=== PATIENT | male | born 1955 | race Caucasian/White ===

== ENCOUNTER 2017-11-02 15:33 | Emergency (ER) | payer OTHER ==
[2017-11-02 15:45] VITALS: BP 154/79
--- NOTE | 2017-11-02 16:04 | UC ---
Dizzy HPI HPI Summary: PT WAS TRYING TO CLEAN A DRAIN IN HIS GARAGE ABOUT 10:30AM TODAY WHEN HE REALIZED HE WAS BREATHING IN FUMES FROM THE SEPTIC SYSTEM - HYDROGEN SULFIDE. PT REPORTS EXPOSURE FOR ABOUT 2 MINUTES. SINCE THEN HE HAS HAD PERSISTENT NAUSEA AND VOMITED X 1 AND LOOSE STOOLS X 2. HAS SOME LIGHTHEADEDNESS AND FEELS FOGGY. NO CP, SOB. - History Of Current Complaint Chief Complaint: UCChemicalExposure Stated Complaint: NAUSEA, AND VOMITING Time Seen by Provider: 11/02/17 15:44 Hx Obtained From: Patient Onset/Duration: Sudden Onset, Lasting Hours, Still Present Timing: Constant Severity Initially: Moderate Severity Currently: Mild Pain Intensity: 2 Pain Scale Used: 0-10 Numeric Character: Lightheaded Aggravating Factor(s): Headache Alleviating Factor(s): Nothing Associated Signs And Symptoms: Positive: Nausea, Vomiting. Negative: Chest Pain , SOB, Palpitations - Allergies/Home Medications Allergies/Adverse Reactions: Allergies Allergy/AdvReac Type Severity Reaction Status Date / Time Fenofibrate Allergy Mild Hives Verified 11/02/17 15:45 environmental Allergy Mild Congestion Uncoded 11/02/17 15:45 Home Medications: Home Medications Allergy Relief Eye Drops* 11/02/17 [History] Cetirizine* [ZyrTEC 10 MG TAB*] 10 mg PO DAILY 11/02/17 [History Confirmed 11/02] Multiple Vitamins W/ Minerals [Vitamins & Minerals] 11/02/17 [History Confirmed 11/02/17] PMH/Surg Hx/FS Hx/Imm Hx Respiratory History: Asthma Other GI/ History: IBS - Surgical History Surgical History: None - Family History Known Family History: Positive: Hypertension - Social History Alcohol Use: Occasionally Substance Use Type: None Smoking Status (MU): Never Smoked Tobacco Have You Smoked in the Last Year: No Review of Systems Constitutional: Negative ENT: Negative Respiratory: Negative Cardiovascular: Negative Gastrointestinal: Vomiting, Diarrhea, Nausea Neurological: Headache, Other - LIGHTHEADED All Other Systems Reviewed And Are Negative: Yes Physical Exam Triage Information Reviewed: Yes Appearance: Well-Appearing, No Pain Distress, Well-Nourished Vital Signs: Initial Vital Signs Temp 97.7 F 11/02/17 15:36 Pulse 96 11/02/17 15:36 Resp 16 11/02/17 15:36 BP 154/79 11/02/17 15:36 Pulse Ox 100 11/02/17 15:36 Vital Signs Reviewed: Yes Eyes: Positive: Conjunctiva Clear ENT: Positive: Hearing grossly normal, Pharynx normal Neck: Positive: Supple, Nontender Respiratory Exam: Normal Cardiovascular Exam: Normal Abdomen Description: Positive: Soft Musculoskeletal: Positive: No Edema Neurological: Positive: Alert Psychological: Positive: Age Appropriate Behavior Skin: Negative: rashes Diagnostics - EKG Cardiac Rate: NL Cardiac Rhythm: Sinus: Normal Ectopy: None ST Segment: Normal Dizzy Course/Dx - Course Course Of Treatment: POISON CONTROL CONTACTED. DUE TO HIGHLY TOXIC NATURE OF GAS AND POTENTIAL FOR CARDIAC SEQUELAE - RECOMMENDED TRANSFER TO ED. PT DECLINED. SIGNED OUT AMA. ADVISED OF POTENTIAL RISKS OF NOT PURSUING FOLLOW-UP - INCLUDING . - Differential Dx/Diagnosis Provider Diagnoses: HAZARDOUS CHEMICAL FUME EXPOSURE Discharge - Discharge Plan Condition: Stable Disposition: AGAINST MEDICAL ADVICE Prescriptions: Ondansetron ODT TAB* [Zofran Odt TAB*] 4 mg PO Q6H PRN #20 tab.odt PRN Reason: Nausea/Vomiting Patient Education Materials: Smoke Inhalation (ED) Referrals: Sarmad Ndiaye MD [Primary Care Provider] - If Needed Additional Instructions: YOU HAVE DECLINED ER TRANSFER AND ARE CHOOSING TO SIGN OUT AGAINST MEDICAL ADVICE. GO TO THE ER WITHOUT FAIL IF YOUR SYMPTOMS PERSIST OR WORSEN.
== END 2017-11-02 16:17 | disposition left against medical advice (07) ==
LOC: UCEAST 15:33
DX: T59.6X1A Toxic effect of hydrogen sulfide, accidental (unintentional), initial encounter (principal); R94.31 Abnormal electrocardiogram [ECG] [EKG]; Z88.8 Allergy status to other drugs, medicaments and biological substances; J45.909 Unspecified asthma, uncomplicated
CPT/HCPCS: 93005; 99213; G0463

== ENCOUNTER 2018-02-19 13:11 | Observation (INO) | payer BC ==
--- NOTE | 2018-02-19 14:08 | RAD ---
Indication: Syncope, chest pain. 2 views of the chest including dual energy PA views demonstrate no mediastinal shift. Heart is of normal size and configuration. Lung stover are clear. No pleural fluid, pneumonia or pneumothorax is noted. IMPRESSION: No active cardiopulmonary disease is noted.
[2018-02-19] MEDS ORDERED: Metoprolol Tartrate IV* 1 MG/ML 5 ML VIAL IV ONE (14:12)
[2018-02-19] MEDS ORDERED: NS 0.9% 1000 ML* 1,000 ML IV ONE (14:12)
[2018-02-19 14:30] LABS: ABS Basophils 0 10^3/ul (0-0.2); ABS Eosinophils 0.2 10^3/ul (0-0.6); ABS Lymphocytes 1.8 10^3/ul (1.0-4.8); ABS Monocytes 0.6 10^3/ul (0-0.8); ABS Neutrophils 5.4 10^3/ul (1.5-7.7); ABS Nucleated RBC 0 10^3/ul; Eosinophil % 2.2 % (0-6); Hematocrit 43 % (42-52); Hemoglobin 14.8 g/dl (14.0-18.0); Lymphocyte % 22.8 % (25-47); Mean Corpuscular HGB Conc 35 g/dl (31-36); Mean Corpuscular Hemoglobin 31 pg (27-31); Mean Corpuscular Volume 90 fL (80-94); Mean Platelet Volume 9.2 um3 (7.4-10.4); Nucleated Red Blood Cells % 0; Platelet Count 190 10^3/ul (150-450); Red Blood Count 4.75 10^6/ul (4.0-5.4); Red Cell Distribution Width 14 % (10.5-15)
[2018-02-19 14:49] LABS: EGFR Non-African American 68.3 (>60)
[2018-02-19] MEDS ORDERED: Acetaminophen TAB* 325 MG PO PRN (16:37)
[2018-02-19] MEDS ORDERED: Potassium Chlor TAB* 20 MEQ TAB.ER PO ONE (16:53)
--- NOTE | 2018-02-19 18:32 | ED ---
Earline Philippe Julia, scribed for Danyel Vincent MD on 02/19/18 at 1405 . Palpitations / Dysrhythmia - HPI Summary HPI Summary: This patient is a 62 year old M presenting to [facility] accompanied by his with a chief complaint of due to a near syncopal episode described as immediate lightheadedness with tingling in the arms around noon today. Pt has a hx of PVC s and states that he can typically feel a warning/gradual onset of symptoms when he experiences PVCs. He states the sudden onset of symptoms is not usual for him. He reports a history of syncope when leaning forward that was undiagnosed. Patient denies CP or SOB. He reports on and off illness for the past couple months. Patient is not taking any regular medications, except for allergy medication as needed. - History of Current Complaint Chief Complaint: EDGeneral Time Seen by Provider: 02/19/18 14:01 Hx Obtained From: Patient Onset/Duration: Sudden Onset Character: Irregular - PVCs Aggravating: Nothing Alleviating: Nothing Associated Signs & Symptoms: Lightheadedness, Syncope Related History: Similar Episode/Dx as - syncopal episodes, PVCs - Allergy/Home Medications Allergies/Adverse Reactions: Allergies Allergy/AdvReac Type Severity Reaction Status Date / Time fenofibrate Allergy Hives Verified 02/19/18 13:17 environmental Allergy Mild Congestion Uncoded 02/19/18 13:17 PMH/Surg Hx/FS Hx/Imm Hx Endocrine/Hematology History: Denies: Hx Diabetes Cardiovascular History: Reports: Other Cardiovascular Problems/Disorders - PVCs Denies: Hx Hypertension Respiratory History: Reports: Hx Asthma History: Denies: Hx Renal Disease Infectious Disease History: Yes Infectious Disease History: Reports: History 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 Denies: Hx Clostridium Difficile, Hx Hepatitis, Hx Human Immunodeficiency Virus (HIV), Hx of Known/Suspected MRSA, Hx Shingles, Hx Tuberculosis, Traveled Outside the [place] in Last 30 Days - Family History Known Family History: Positive: Hypertension - Social History Alcohol Use: Occasionally Substance Use Type: Reports: None Smoking Status (MU): Never Smoked Tobacco Have You Smoked in the Last Year: No Review of Systems Positive: Other - recent illness Positive: Palpitations. Negative: Chest Pain Negative: Shortness Of Breath Neurological: Other - lightheaded Positive: Syncope - near All Other Systems Reviewed And Are Negative: Yes Physical Exam - Summary Physical Exam Summary: Appearance: Well appearing, moderate pain distress, wearing collar Skin: warm, dry, reflects adequate perfusion Head/face: normal Eyes: EOMI, YANNI ENT: normal Neck: wearing cervical collar Respiratory: CTA, breath sounds present Cardiovascular: RRR, pulses symmetrical Abdomen: non-tender, soft Bowel Sounds: present Musculoskeletal: strength/ROM intact, Neuro: normal, sensory motor intact, A&Ox3, good sensation bilaterally good car starter strength bilaterally Triage Information Reviewed: Yes Vital Signs On Initial Exam: Initial Vitals Temp Pulse Resp BP Pulse Ox 98.3 F 96 18 176/107 97 02/19/18 13:14 02/19/18 13:14 02/19/18 13:14 02/19/18 13:14 02/19/18 13:14 Vital Signs Reviewed: Yes Diagnostics - Vital Signs Vital Signs Temp Pulse Resp BP Pulse Ox 02/19/18 13:14 98.3 F 96 18 176/107 97 - Laboratory Lab Results: Lab Results 02/19/18 02/19/18 02/19/18 Range/Units 14:15 14:15 14:15 WBC 8.0 (3.5-10.8) 10^3/ul RBC 4.75 (4.0-5.4) 10^6/ul Hgb 14.8 (14.0-18.0) g/dl Hct 43 (42-52) % MCV 90 (80-94) fL MCH 31 (27-31) pg MCHC 35 (31-36) g/dl RDW 14 (10.5-15) % Plt Count 190 (150-450) 10^3/ul MPV 9.2 (7.4-10.4) um3 Neut % (Auto) 66.9 (38-83) % Lymph % (Auto) 22.8 L (25-47) % Ramsey % (Auto) 7.5 H (0-7) % Eos % (Auto) 2.2 (0-6) % Baso % (Auto) 0.6 (0-2) % Absolute Neuts (auto) 5.4 (1.5-7.7) 10^3/ul Absolute Lymphs (auto) 1.8 (1.0-4.8) 10^3/ul Absolute Monos (auto) 0.6 (0-0.8) 10^3/ul Absolute Eos (auto) 0.2 (0-0.6) 10^3/ul Absolute Basos (auto) 0 (0-0.2) 10^3/ul Absolute Nucleated RBC 0 10^3/ul Nucleated RBC % 0 D-Dimer, Quantitative < 200 (Less Than 230) ng/mL Sodium (139-145) mmol/L Potassium (3.5-5.0) mmol/L Chloride (101-111) mmol/L Carbon Dioxide (22-32) mmol/L Anion Gap (2-11) mmol/L BUN (6-24) mg/dL Creatinine (0.67-1.17) mg/dL Est GFR ( Amer) (>60) Est GFR (Non-Af Amer) (>60) BUN/Creatinine Ratio (8-20) Glucose (70-100) mg/dL Lactic Acid (0.5-2.0) mmol/L Calcium (8.6-10.3) mg/dL Total Bilirubin (0.2-1.0) mg/dL AST (13-39) U/L ALT (7-52) U/L Alkaline Phosphatase (34-104) U/L Troponin I (<0.04) ng/mL Total Protein (6.4-8.9) g/dL Albumin (3.2-5.2) g/dL Globulin (2-4) g/dL Albumin/Globulin Ratio (1-3) TSH 2.21 (0.34-5.60) mcIU/mL Free T4 0.68 (0.61-1.12) ng/dL 02/19/18 02/19/18 02/19/18 Range/Units 14:15 14:15 16:05 WBC (3.5-10.8) 10^3/ul RBC (4.0-5.4) 10^6/ul Hgb (14.0-18.0) g/dl Hct (42-52) % MCV (80-94) fL MCH (27-31) pg MCHC (31-36) g/dl RDW (10.5-15) % Plt Count (150-450) 10^3/ul MPV (7.4-10.4) um3 Neut % (Auto) (38-83) % Lymph % (Auto) (25-47) % Ramsey % (Auto) (0-7) % Eos % (Auto) (0-6) % Baso % (Auto) (0-2) % Absolute Neuts (auto) (1.5-7.7) 10^3/ul Absolute Lymphs (auto) (1.0-4.8) 10^3/ul Absolute Monos (auto) (0-0.8) 10^3/ul Absolute Eos (auto) (0-0.6) 10^3/ul Absolute Basos (auto) (0-0.2) 10^3/ul Absolute Nucleated RBC 10^3/ul Nucleated RBC % D-Dimer, Quantitative (Less Than 230) ng/mL Sodium 139 (139-145) mmol/L Potassium 3.4 L (3.5-5.0) mmol/L Chloride 102 (101-111) mmol/L Carbon Dioxide 29 (22-32) mmol/L Anion Gap 8 (2-11) mmol/L BUN 20 (6-24) mg/dL Creatinine 1.09 (0.67-1.17) mg/dL Est GFR ( Amer) 87.9 (>60) Est GFR (Non-Af Amer) 68.3 (>60) BUN/Creatinine Ratio 18.3 (8-20) Glucose 112 H (70-100) mg/dL Lactic Acid 1.5 (0.5-2.0) mmol/L Calcium 9.4 (8.6-10.3) mg/dL Total Bilirubin 0.40 (0.2-1.0) mg/dL AST 25 (13-39) U/L ALT 28 (7-52) U/L Alkaline Phosphatase 57 (34-104) U/L Troponin I 0.00 0.00 (<0.04) ng/mL Total Protein 7.4 (6.4-8.9) g/dL Albumin 4.2 (3.2-5.2) g/dL Globulin 3.2 (2-4) g/dL Albumin/Globulin Ratio 1.3 (1-3) TSH (0.34-5.60) mcIU/mL Free T4 (0.61-1.12) ng/dL Result Diagrams: 02/19/18 14:15 02/19/18 14:15 Lab Statement: Any lab studies that have been ordered have been reviewed, and results considered in the medical decision making process. - Radiology CXR Radiology Interpretation Completed By: Radiologist - No active cardiopulmonary disease is noted. ED Physician has reviewed this report. - EKG 1412 Cardiac Rate: NL - at 91 BPM EKG Rhythm: Sinus Rhythm ST Segment: Non-Specific EKG Interpretation: Q waves in lead III and avf Re-Evaluation - Re-Evaluation First Eval Change: Improved Course/Dx - Course Course Of Treatment: Pt with no sx here but hx of "PVCs" with abrupt onset syncope. Has been fine since. Hx of similar in past. Will require monitoring for possible runs of VT etc. - Diagnoses Differential Diagnosis/HQI/PQRI: Positive: Myocarditis, Paroxymal SVT, Pericarditis, Pulmonary Embolism, V-Tach Provider Diagnoses: Syncope - Physician Notifications Discussed Care Of Patient With: Lorena Adams - hospitalist Time Discussed With Above Provider: 15:15 Instructed by Provider To: Admit As Inpatient Discharge - Sign-Out/Discharge Documenting (check all that apply): Discharge - Discharge Plan Condition: Improved Disposition: ADMITTED TO [facility] - Billing Disposition and Condition Condition: IMPROVED Disposition: [facility] [place] [place] The documentation as recorded by the Earline rojas Julia accurately reflects the service I personally performed and the decisions made by , Danyel Vincent MD.
[2018-02-19] MEDS: NS 0.9% 1000 ML* 1,000 ML IV SCH (18:59)
[2018-02-19] MEDS ORDERED: Zolpidem TAB* 5 MG PO SCH (21:00)
--- NOTE | 2018-02-19 21:29 | HP ---
ATTENDING ADDENDUM NOW INCLUDED ON THIS REPORT CC: Dr. Ndiaye * ADMISSION HISTORY AND PHYSICAL: DATE OF ADMISSION: 02/19/18 ATTENDING HOSPITALIST DURING THIS ADMISSION: Dr. Radha Jc.* (dictated by MARTIEN BELLAMY) PRIMARY CARE PHYSICIAN: Dr. Sarmad Ndiaye. CHIEF COMPLAINT: Near syncope. HISTORY OF PRESENT ILLNESS: Mr. Chavarria is a pleasant 62-year-old gentleman who presented to the emergency room today with complaints of near-syncopal episode that happened this afternoon. The patient is relatively healthy middle- aged gentleman with only past medical history significant for seasonal allergies as well as hyperlipidemia for which he has not been taking any medication. He described episodes of PVC since he was a teenager, usually in the form of palpitation, but never had chest pain, syncopal episodes, or any other associated symptoms. He notes that he has been seen and evaluated back in the s with negative cardiac workup. He tells me that he had a stress test done a couple of times back in the that revealed negative coronary artery disease. The patient is quite active and he is recently retired and enjoys very active lifestyle. He denies any chest pain at the onset of his near- syncopal episode; however, he just felt that he was going to pass out and suddenly went back to consciousness with no diaphoresis or any chest pain. He notes that he felt flushed after that, but denies any palpitation or other associated symptoms. During his ED visit, he had laboratory workup that revealed normal CBC, D-dimer, and chemistry panel with the exception of slight hypokalemia with potassium of 3.4. He had TSH of 2.21 and EKG showed no significant changes. Given his age and known history of hyperlipidemia and PVCs , we were asked to see the patient for possible observation status and close monitoring overnight. PAST MEDICAL HISTORY: Essentially unremarkable with the exception of history of hyperlipidemia, for which he does not take any medication as well as history of PVCs that was evaluated in the past. He denies any history of lung, liver, or kidney disease. PAST SURGICAL HISTORY: None. CURRENT MEDICATIONS: His medications at home include: 1. Flax oil 2 tablespoons p.o. daily. 2. Fluticasone nasal spray 50 mcg 2 sprays in each nostril once daily. 3. Claritin 10 mg p.o. daily. ALLERGIES: He is allergic to FENOFIBRATE and also has ENVIRONMENTAL ALLERGIES. FAMILY HISTORY: Noncontributory. SOCIAL HISTORY: The patient is a nonsmoker, who drinks alcohol rarely and caffeine intake is minimal. He denies any history of malignancies in the family or history of coronary artery disease or stroke. His surrogate healthcare maker is his . REVIEW OF SYSTEMS: See HPI. Otherwise, 14-point review of systems was reviewed and otherwise negative. PHYSICAL EXAMINATION GENERAL: He is a pleasant 62-year-old gentleman, healthy appearing and in no acute distress or discomfort at the time of admission. VITAL SIGNS: Reveal temperature of 98.3, pulse of 96, blood pressure of 176/ 107. It is noted that blood pressure cuff was extra large for his arm size and I asked to replace it and take blood pressure reading one more time. Respirations are 18 and O2 sat is 97% on room air. HEENT: Head is normocephalic, atraumatic. Sclerae anicteric. PERRLA. EOMs intact. Oropharynx is pink and moist. NECK: Supple. Trachea midline. No cervical adenopathy, thyromegaly, or JVD. LUNGS: Clear to auscultation bilaterally. HEART: Regular rate and rhythm. Normal S1 and S2 without rubs, murmurs, or gallops. BACK: Normal curvature. No CVA tenderness. ABDOMEN: Soft, nontender, and nondistended. There are no hernias, masses, or hepatosplenomegaly. There is no guarding, rigidity, or rebound tenderness. Bowel sounds were normoactive. EXTREMITIES: Without cyanosis, clubbing, or edema. RECTAL: Deferred at this time. NEUROLOGIC: Grossly intact. DIAGNOSTIC STUDIES/LAB DATA: CBC showed white count of 8000, hemoglobin 14.8, hematocrit 43, and platelets of 190. His chemistry was sodium of 139, potassium 3.4, chloride 102, CO2 of 29, BUN of 20, creatinine of 1.1. His glucose was 112. LFTs, amylase, lipase, troponin drawn twice, TSH, and free T4 all within normal limits. Accessory diagnostic data: Chest x-ray was obtained that revealed no acute cardiopulmonary disease. IMPRESSION: A 62-year-old gentleman with past medical history significant for environmental allergies and hyperlipidemia, who presents to the emergency room with a near-syncopal episode with known history of premature ventricular contractions without any chest pain or history of coronary artery disease. PLAN: 1. Near-syncopal episode. The patient will be admitted to telemetry unit for observation overnight. I discussed with him the slim possibility of cardiac origin related to his near-syncopal episode. Given his history of PVCs, we will obtain an echocardiogram tomorrow and I discussed with him possible cardiac consultation if needed. He appears to be clinically stable with no complaints of chest pain at this time. 2. Hyperlipidemia. The patient reports history of hyperlipidemia; however, he has not been taking any statins. I will review his lipid panel tomorrow and his morning labs. 3. Hypertension. Seems to have hypertensive episode at this time. I will recheck manual blood pressure and address that issue with him. He tells me that his blood pressures usually run 120s/80s at home. 4. Environmental allergies. We will continue his Claritin and nasal spray. 5. DVT prophylaxis. The patient is at moderate risk based on his age only. We will use SCDs as well as early ambulation. 6. Code status. The patient is a full code. MARTINE BELLAMY ADDENDUM: This case was discussed and reviewed with MARTINE Bellamy. Mr. Chavarria is a 62-year-old male with a past medical history of allergies, hyperlipidemia and palpitations, found to be secondary to PVCs. He presented to the emergency room today after a near syncopal episode associated with tachycardia. In the emergency room, his vital signs were stable except for elevation of his blood pressure. The patient had similar episode in the past and there is reported Holter that showed only PVCs. The patient will be admitted as observation to the telemetry floor to see if we can diagnose any arrhythmias. We are going to replete his potassium. He will have a transthoracic echocardiogram and at this point, I do not think stress test is indicated unless his troponin shows some elevation. I am in agreement with the current management. RADHA Jc MD [id number] #: [id number] #: [id number] MARLA
--- NOTE | 2018-02-19 21:29 | HP ---
CC: Dr. Ndiaye* HISTORY AND PHYSICAL: ADDENDUM: This case was discussed and reviewed with MARTINE Downing. Mr. Chavarria is a 62-year-old male with a past medical history of allergies, hyperlipidemia and palpitations, found to be secondary to PVCs. He presented to the emergency room today after a near syncopal episode associated with tachycardia. In the emergency room, his vital signs were stable except for elevation of his blood pressure. The patient had similar episode in the past and there is reported Holter that showed only PVCs. The patient will be admitted as observation to the telemetry floor to see if we can diagnose any arrhythmias. We are going to replete his potassium. His PFTs were normal. He will have a transthoracic echocardiogram and at this point, I do not think stress test is indicated unless his troponin shows some elevation. I am in agreement with the current management. [id number] #: [id number] MTDD
[2018-02-20] MEDS: NS 0.9% 1000 ML* 1,000 ML IV SCH (05:19)
[2018-02-20 05:26] LABS: ABS Basophils 0 10^3/ul (0-0.2); ABS Eosinophils 0.2 10^3/ul (0-0.6); ABS Lymphocytes 2.1 10^3/ul (1.0-4.8); ABS Monocytes 0.5 10^3/ul (0-0.8); ABS Neutrophils 3.1 10^3/ul (1.5-7.7); ABS Nucleated RBC 0 10^3/ul; Eosinophil % 3.7 % (0-6); Hematocrit 39 % (42-52); Hemoglobin 13.5 g/dl (14.0-18.0); Lymphocyte % 35.5 % (25-47); Mean Corpuscular HGB Conc 34 g/dl (31-36); Mean Corpuscular Hemoglobin 31 pg (27-31); Mean Corpuscular Volume 91 fL (80-94); Mean Platelet Volume 9.2 um3 (7.4-10.4); Nucleated Red Blood Cells % 0.1; Platelet Count 155 10^3/ul (150-450); Red Blood Count 4.35 10^6/ul (4.0-5.4); Red Cell Distribution Width 14 % (10.5-15); White Blood Count 5.9 10^3/ul (3.5-10.8)
[2018-02-20 05:48] LABS: EGFR Non-African American 87.5 (>60)
[2018-02-20] MEDS ORDERED: Fluticasone NASAL SPRAY 50MCG* 16 gm SPRAY BTL BOTH NARES SCH ×2 (09:00→21:00)
[2018-02-20] MEDS ORDERED: Cetirizine* 10 MG TAB PO SCH ×2 (09:00→21:00)
[2018-02-20 14:09] LABS: Urine Appearance Clear; Urine Blood Negative (Negative); Urine Color Straw; Urine Ketones Negative (Negative); Urine Protein Negative (Negative); Urine Specific Gravity 1.006 (1.010-1.030); Urine Urobilinogen Negative (Negative)
--- NOTE | 2018-02-20 14:54 | ECHO ---
Patient: HERBERT KRAMER [facility] Rec#: [id number] : 1955 Date: 02/20/2018 Age: 62y Height: 180.34 cm / 71.0 in Weight: 79.38 kg / 175.0 lbs Sex: M BSA: 1.99 Room#: [facility] Admit Date#: 02/19/2018 Referring: Solo Sánchez Reading: Gabriela Sanchez MD Membership Sales Manager: Dena Altamirano RDCS CC: Sarmad Ndiaye MD Transthoracic Echocardiogram Indication: Syncope BP: 133/66 HR: 73 Rhythm: NSR Findings History: HLD,remote hx. of palpitations. Technical Comments: The study quality is good. Completed at 1202. Left Ventricle: The left ventricular chamber size is normal. There is no left ventricular hypertrophy. Global left ventricular wall motion and contractility are within normal limits. The estimated ejection fraction is 60-65%. Normal left ventricular diastolic filling is observed. Left Atrium: The left atrial chamber size is normal. Right Ventricle: The right ventricular cavity size is normal. The right ventricular global systolic function is normal. Right Atrium: The right atrial cavity size is normal. Aortic Valve: The aortic valve is trileaflet. There is no evidence of aortic regurgitation. There is no evidence of aortic stenosis. Mitral Valve: The mitral valve leaflets are mildly thickened. There is a trace of mitral regurgitation. There is no evidence of mitral stenosis. Tricuspid Valve: The tricuspid valve leaflets are normal. There is trace to mild tricuspid regurgitation. There is evidence of borderline pulmonary hypertension. There is no tricuspid stenosis. Pulmonic Valve: The pulmonic valve appears normal. Pericardium: The pericardium appears normal. Aorta: There is mild dilatation of the ascending aorta. There is no dilatation of the aortic arch. There is moderate dilatation of the aortic root. Pulmonary Artery: The main pulmonary artery appears normal. Conclusions Global left ventricular wall motion and contractility are within normal limits. The estimated ejection fraction is 60-65%. The right ventricular global systolic function is normal. All valves appear structurally normal with good excursion. There is a trace of mitral regurgitation. There is trace to mild tricuspid regurgitation. There is evidence of borderline pulmonary hypertension: 35 mHg. There is mild dilatation of the ascending aorta: 3.7 mmHg. No prior echo to compare. Measurements Name Value Normal Range RVIDd (AP) 2D 2.4 cm (0.9 - 2.6) RVDdMajor (2D) 3.8 cm (2.2 - 4.4) RAd ISD 4CH 4.7 cm (3.4 - 4.9) RA (A4C)W 3.6 cm (2.9 - 4.6) IVSd (2D) 0.9 cm (0.6 - 1) LVPWd (2D) 0.9 cm (0.6 - 1) LVIDd (2D) 4.5 cm (3.6 - 5.4) LVIDs (2D) 2.4 cm - LV FS (2D) 47 % (25 - 45) Aortic Annulus 2.2 cm (1.4 - 2.6) Ao root diameter (2D) 4 cm (2.1 - 3.5) Ascending Ao 3.7 cm (2.1 - 3.4) Aortic arch 2.7 cm (1.8 - 3.4) Descending Ao 0.6 cm - LA dimension (AP) 2D 3.3 cm (2.3 - 3.8) LAd ISD 4CH 4 cm (2.9 - 5.3) LA ISD 4CH W 3.5 cm (2.5 - 4.5) Name Value Normal Range LA ESV SP 4CH (A/L) 25 ml - LA ESV SP 2CH (A/L) 40 ml - LA ESV BP (A/L) 36 ml - LA ESV BP (A/L) index 18.31 ml/m2 - LA ESV SP 4CH (MOD) 23 ml - LA ESV SP 2CH (MOD) 40 ml - Name Value Normal Range MV E-wave Vmax 0.9 m/sec - MV deceleration time 183 msec - MV A-wave Vmax 0.8 m/sec - MV E:A ratio 1.08 ratio - LV septal e' Vmax 0.1 m/sec - LV lateral e' Vmax 0.09 m/sec - LV E:e' septal ratio 9 ratio - LV E:e' lateral ratio 10 ratio - Name Value Normal Range AV Vmax 1.3 m/sec - AV VTI 28.1 cm - AV peak gradient 6.7 mmHg - AV mean gradient 3.74 mmHg - LVOT Vmax 1.1 m/sec - LVOT VTI 21.2 cm - LVOT peak gradient 5 mmHg - LVOT mean gradient 2.82 mmHg - Name Value Normal Range TR Vmax 2.6 m/sec - TR peak gradient 27 mmHg - RAP 8 mmHg - RVSP 35 mmHg - Name Value Normal Range PV Vmax 0.9 m/sec - PV peak gradient 3.38 mmHg -
[2018-02-20 15:28] VITALS: BP 131/80
--- NOTE | 2018-02-20 23:08 | DS ---
CC: Dr. Ndiaye * DISCHARGE SUMMARY: DATE OF ADMISSION: 02/19/18 DATE OF DISCHARGE: 02/20/18 PRIMARY CARE PROVIDER: Dr. Ndiaye. DISCHARGE DIAGNOSIS: Near syncope possibly due to cardiac arrhythmia. SECONDARY DIAGNOSES: 1. History of PVCs. 2. History of dyslipidemia. MEDICATIONS AT DISCHARGE: Include: 1. Flax oil 2 tablespoons daily. 2. Fluticasone nasal spray 50 mcg 2 sprays in each nostril daily. 3. Claritin 10 mg daily. LABORATORY DATA AND STUDIES PERFORMED DURING THE HOSPITAL STAY: Included: Troponins were 0 throughout his hospital stay. Patient's TSH was 2.21. His cholesterol profile showed cholesterol total of 270, triglycerides of 292, LDL of 175, and HDL of 37. On 02/20/18, sodium of 141, potassium 2.8, chloride 107, carbon dioxide 29, BUN 12, creatinine 0.88. Magnesium was 2.2. Urinalysis was unremarkable. CBC showed white blood cell count of 5.9, hemoglobin of 13.5, hematocrit of 39, and platelets of 155. Transthoracic echocardiogram obtained on 02/20/18 showed EF of 60% to 65% with trace mitral regurgitation and borderline pulmonary hypertension of 35 mmHg and normal left wall ventricle motion and contractility. HOSPITALIZATION COURSE: Rafael Chavarria is a 62-year-old male who stated that he was sitting at his computer, looking for aquarium fish to buy when all of a sudden he felt palpitations in his chest and he felt that he almost passed out but he "woke himself" up when his head was on its way down towards the keyboard. He stated that subsequently he developed bilateral upper extremity tingling that resolved within seconds. He denied any chest pain, shortness of breath, but he stated that he felt flashed and heart rate which he recorded by himself at 100 a minute for several minutes by the time he presented to the emergency department. His pulse rate was in the 80s and he was otherwise hemodynamically stable, but slightly hypertensive. He was admitted to telemetry monitored bed for overnight observation, which noted no arrhythmias whatsoever. The patient continued to be in sinus rhythm throughout his 24 hours of telemetry monitoring. Urinalysis to rule out any source of infection was unremarkable. His electrolytes were unremarkable. The patient was back to his baseline. I discussed with the patient that he could possibly have cardiac arrhythmia and that he was observed on telemetry monitored bed for over 24 hours with no evidence of such. 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 I spoke with the chemist instrumentation insect control inspector. The patient needs an outpatient referral for the evaluation by Cardiology for further monitor. At this point, the patient is recommended to follow up with Dr. Ndiaye in approximately 4 to 7 days and obtain referral from Dr. Ndiaye for one of our cardiologists to evaluate for long-term cardiac monitoring. PHYSICAL EXAMINATION: At the time of discharge, blood pressure of 131/80, heart rate of 70 and regular, respiratory rate 20, oxygen saturation 98% on room air, temperature 98.3. General: The patient is a very pleasant 62-year- old male in no acute distress. Alert, awake, and oriented x3. HEENT: Head: Atraumatic, normocephalic. Eyes: Pupils are equal, reactive to light and accommodation. Oropharynx clear. Mucosa moist. Neck: Supple. No JVD. No bruits bilaterally. Cardiovascular: Regular rate and rhythm. No murmur. Respiratory: Clear to auscultation bilaterally. Abdomen: Soft, nontender. Bowel sounds present in all 4 quadrants. Extremities: There is no edema. Pulses are +2 bilaterally. No clubbing or cyanosis. Neuro Evaluation: Speech clear. Cranial nerves II through XII grossly intact. Motor strength is 5/5 bilaterally. Please note that this is a short summary of the patient's hospitalization. Please refer to further medical records for details. [id number]/[facility] #: [id number] MTDD
== END 2018-02-20 17:07 | disposition home or self-care (01) ==
LOC: ED 13:11 → MEDTELE 16:37 → UNDOADMOB 18:03 → MEDTELE 18:03
PROVIDERS: ADMIT Internal Medicine; ATTEND Internal Medicine
DX: R55 Syncope and collapse (principal); E78.5 Hyperlipidemia, unspecified; I10 Essential (primary) hypertension; R42 Dizziness and giddiness; R00.2 Palpitations; I49.9 Cardiac arrhythmia, unspecified
CPT/HCPCS: 36415; 71046; 80048; 80053; 80061; 81003; 83605; 83735; 84439; 84443; 84484; 85025; 85379; 93005; 93306; 96360; 99285; A9270-GY; G0378; J3490

== ENCOUNTER 2018-10-13 11:16 | Emergency (ER) | payer BC ==
[2018-10-13 11:50] VITALS: BP 137/79
--- NOTE | 2018-10-13 11:52 | UC ---
Respiratory Complaint HPI - HPI Summary HPI Summary: 63 y/o male presents to the urgent care c/o productive cough, chest congestion w/ yellowish phlegm and fever for the past 2 weeks. Pt states Hx of asthma. symptoms worsen about 3 days ago when he developed wheezing, he has been using his inhaler w/o any improvement of symptoms. He had fever of 102F and chills yesterday. He also had sinus congestion w/ green nasal discharge. He got the influenza vaccine about 1 month ago. However last year he got the vaccine and then he became sick. He thinks the same is happening now. Pt denies any respiratory distress, but he has noticed mild SOB and more wheezing today. He denies fever today, dizziness, CROWDER, chest pain, abdominal pain, N/V/D, difficulty breathing. - History of Current Complaint Chief Complaint: UCRespiratory Stated Complaint: FLU LIKE SYMPTOMS Time Seen by Provider: 10/13/18 11:50 Hx Obtained From: Patient Onset/Duration: Gradual Onset, Lasting Weeks - 2 weeks Timing: Intermittent Episodes Severity Initially: Mild Severity Currently: Moderate Pain Intensity: 7 Pain Scale Used: 0-10 Numeric Character: Cough: Productive, Sputum Description: - yellowish Aggravating Factors: Recumbent Position Alleviating Factors: Bronchodilator Associated Signs And Symptoms: Positive: Dyspnea, Fever, Chills, Wheezing, URI, Nasal Congestion, Sinus Discomfort - Risk Factors Pulmonary Embolism Risk Factors: Negative Cardiac Risk Factors: Negative Pseudomonas Risk Factors: Negative Tuberculosis Risk Factors: Negative - Allergies/Home Medications Allergies/Adverse Reactions: Allergies Allergy/AdvReac Type Severity Reaction Status Date / Time fenofibrate Allergy Hives Verified 10/13/18 11:50 environmental Allergy Mild Congestion Uncoded 10/13/18 11:50 Home Medications: Home Medications Acetaminophen [Acetaminophen Extra Strength] 500 mg PO DAILY WITH MEAL 10/13/18 [History Confirmed 10/13/18] Guaifenesin/Dextromethorphan [Tussin Dm Liquid] 118 ml PO DAILY WITH MEAL [History Confirmed 10/13/18] guaiFENesin [Mucinex] 1,200 mg PO DAILY WITH MEAL 10/13/18 [History Confirmed ] PMH/Surg Hx/FS Hx/Imm Hx Previously Healthy: Yes Endocrine History: Dyslipidemia Other Cardiovascular History: PVCs Respiratory History: Asthma - Surgical History Surgical History: None - Family History Known Family History: Positive: Hypertension Family History: Dyslipidemia - Social History Occupation: Retired Lives: With Family Alcohol Use: Occasionally Substance Use Type: None Smoking Status (MU): Never Smoked Tobacco Have You Smoked in the Last Year: No Review of Systems All Other Systems Reviewed And Are Negative: Yes Constitutional: Positive: Fever, Chills, Other - body aches Skin: Positive: Negative Eyes: Positive: Negative ENT: Positive: Nasal Discharge, Sinus Congestion, Sinus Pain/Tenderness Respiratory: Positive: Shortness Of Breath - mild, Cough - productive phlegm, Other - wheezing Cardiovascular: Positive: Negative Gastrointestinal: Positive: Negative Genitourinary: Positive: Negative Motor: Positive: Negative Neurovascular: Positive: Negative Musculoskeletal: Positive: Myalgia Neurological: Positive: Negative Psychological: Positive: Negative Is Patient Immunocompromised?: No Physical Exam - Summary Physical Exam Summary: Vital Signs Reviewed: Yes General: well developed, well nourished male sitting in the examining table w/o any apparent distress Eyes: Positive: Conjunctiva Clear - PERRLA, EOMI, fundi grossly normal ENT: Positive: Normal ENT inspection, Hearing grossly normal, Pharynx normal, Nasal congestion - edematous and erythematous nasal mucosa, Nasal drainage - yellowish drainage, TMs normal. Negative: Tonsillar swelling, Tonsillar exudate Neck: Positive: Supple, Nontender, No Lymphadenopathy Respiratory: no orthopnea or dyspnea. Able to speak in full sentences, no retractions or accessory muscle use, no tripod position, stridor, or head bobbing. Positive breath sounds bilaterally. diffuse scattered wheezing and rhonchi on b/L lungs, no crackles or rales. Cardiovascular: Positive: RRR, No Murmur, Pulses Normal, Brisk Capillary Refill Abdomen Description: Positive: Nontender, No Organomegaly, Soft. Negative: CVA Tenderness (R), CVA Tenderness (L) Bowel Sounds: Positive: Present Musculoskeletal Exam: Normal Musculoskeletal: Positive: Strength Intact, ROM Intact, No Edema Neurological Exam: Normal Psychological Exam: Normal Skin Exam: Normal Triage Information Reviewed: Yes Vital Signs: Initial Vital Signs Temp 98.3 F 10/13/18 11:43 Pulse 100 10/13/18 11:43 Resp 20 10/13/18 11:43 BP 137/79 10/13/18 11:43 Pulse Ox 90 10/13/18 11:43 UC Diagnostic Evaluation - Laboratory O2 Sat by Pulse Oximetry: 90 Respiratory Course/Dx - Course Course Of Treatment: 63 y/o male presents to the urgent care c/o productive cough, chest congestion w/ yellowish phlegm and fever for the past 2 weeks. Pt states Hx of asthma. symptoms worsen about 3 days ago when he developed wheezing , he has been using his inhaler w/o any improvement of symptoms. He had fever of 102F and chills yesterday. He also had sinus congestion w/ green nasal discharge. He got the influenza vaccine about 1 month ago. However last year he got the vaccine and then he became sick. He thinks the same is happening now. Pt denies any respiratory distress, but he has noticed mild SOB and more wheezing today. He denies fever today, dizziness, CROWDER, chest pain, abdominal pain , N/V/D, difficulty breathing. Hx obtained. Pt is hemodynamically stable w/o any apparent respiratory distress, O2SAt:90%. Pt w/ diffuse wheezes and rhonchi on bilaterally lungs, good air entry B/L on examination. Pt given Prednisone PO and Duoneb Treatment to alleviate symptoms. Pt tolerated well treatment and lungs improved,but still some scattered wheezing. O2Sat:92%. Pt also given theraputic O2 and Pt felt better. Chest X-ray ordered to r/o pneumonia, Impression: B/L Bronchopneumonia. Pt advised to go to the ER for further management since his O2Sat still low. PT stated he feels better and that he lives 1 mile away from the [place] [facility] and if later he notice his symptoms worsen, his will take him to the ER. I explained the risk of not Patient going to the ER. Pt re-stated he feels better and he will go later if worsening symptoms. Pt prescribed Doxyxycline PO, Prednisone taper dose, Albuterol inhaler and given Aerochamber at the clinic. Pt also advised to f/u w / his PCP for further management on his Asthama. The patient was recommended to increase fluid intake. Take medications as recommended. All D/C instructions explained. Patient understood and agree w/ plan of care. Pt left clinic hemodynamically stable , A&OX3 and ambulating w/o any respiratory distress. - Differential Dx/Diagnosis Differential Diagnosis/HQI/PQRI: Asthma, Bronchitis, Influenza, Sinusitis, Other - pneumonia Provider Diagnosis: Bronchopneumonia, Asthma exacerbation Discharge - Sign-Out/Discharge Documenting (check all that apply): Patient Departure - d/c w/ highly recommendation if symptoms woren to immediately go to the ER for furteh management All imaging exams completed and their final reports reviewed: Yes - Discharge Plan Condition: Stable Disposition: HOME-RECOMMEND TO ED Prescriptions: Albuterol HFA INHALER* [Ventolin HFA Inhaler*] 2 puff INH Q6H PRN #1 mdi PRN Reason: Sob/Wheezing DOXYcycline CAP(*) [DOXYcycline 100MG CAP(*)] 100 mg PO BID #20 cap predniSONE TAB* [Deltasone 20 MG TAB*] 20 mg PO DAILY #8 tab Patient Education Materials: Community Acquired Pneumonia (ED) Referrals: Sarmad Ndiaye MD [Primary Care Provider] - 1 Day Additional Instructions: 1-Please take full course of antibiotic to avoid resistance. Starting tomorrow night 2-continue taking the Robistussin PO and use the albuterol inhaler to alleviate wheezing and SOB. Increase fluid intake, rest and eat well. 3- Please go immediately to the ER If symptoms worsen despite taking the antibiotics please go immediately to the ER further evaluation and treatment. 4-See your PCP in 2-3 days to check your symptoms are improving - Billing Disposition and Condition Condition: STABLE Disposition: Home-Recommend to ED
[2018-10-13] MEDS ORDERED: Albuterol/Ipratropium NEB.SOL* Albuterol 2.5 MG/Ipratropium 0.5 MG 3 ML INH ONE (12:03)
[2018-10-13] MEDS ORDERED: predniSONE TAB* 20 MG PO ONE (12:03)
== END 2018-10-13 13:30 | disposition home health service (06) ==
LOC: UCEAST 11:16
DX: J18.0 Bronchopneumonia, unspecified organism (principal); J45.901 Unspecified asthma with (acute) exacerbation; Z88.8 Allergy status to other drugs, medicaments and biological substances
CPT/HCPCS: 71046; 99213; A9270-GY; G0463; J7512

== ENCOUNTER 2018-10-17 14:28 | Emergency (ER) | payer BC ==
[2018-10-17] MEDS ORDERED: NS 0.9% 1000 ML* 1,000 ML IV ONE (14:45)
--- NOTE | 2018-10-17 15:04 | ED ---
Shortness of Breath - HPI Summary HPI Summary: A 63 y/o male presents to [facility] with a chief complaint of SOB since 10/11/18. He rates his pain as a 0/10. The patient was recently diagnosed with PNA on 07/[address] Ndiaye when his O2 level was at 88. The patient claims that he has been sick but has been feeling slightly better each day. He has been taking doxycycline, prednisone and cough medicine. He denies any CP, N/V/D or constipation. The patient complains of coughing up mucous and congestion. He states that his symptoms started with a fever that has since been resolved. He claims that he has been sleeping through the night and that the morning of 10/17 he was feeling good walking up stairs and doing laundry. He denies a SHx and states that he gets occasional allergies. - History of Current Complaint Chief Complaint: EDShortnessOfBreath Time Seen by Provider: 10/17/18 14:40 Hx Obtained From: Patient, Family/Neighborhood Planner Onset/Duration: Gradual Onset, Lasting Days, Still Present Timing: Constant Current Severity: Moderate Dyspnea At: Rest Associated Signs & Symptoms: Cough (Productive), Nasal Congestion - Allergy/Home Medications Allergies/Adverse Reactions: Allergies Allergy/AdvReac Type Severity Reaction Status Date / Time fenofibrate Allergy Hives Verified 10/13/18 11:50 environmental Allergy Mild Congestion Uncoded 10/13/18 11:50 PMH/Surg Hx/FS Hx/Imm Hx Endocrine/Hematology History: Denies: Hx Diabetes, Hx Thyroid Disease Cardiovascular History: Reports: Hx Hypercholesterolemia, Other Cardiovascular Problems/Disorders - PVCs Denies: Hx Hypertension Respiratory History: Reports: Hx Asthma Denies: Hx Chronic Obstructive Pulmonary Disease (COPD) GI History: Denies: Hx Ulcer History: Denies: Hx Renal Disease Musculoskeletal History: Reports: Hx Arthritis, Other Musculoskeletal History - spinal stenosis Sensory History: Reports: Hx Contacts or Glasses Denies: Hx Hearing Aid Opthamlomology History: Reports: Hx Contacts or Glasses Neurological History: Reports: Hx Migraine Infectious Disease History: No Infectious Disease History: Reports: History 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 Denies: Hx Clostridium Difficile, Hx Hepatitis, Hx Human Immunodeficiency Virus (HIV), Hx of Known/Suspected MRSA, Hx Shingles, Hx Tuberculosis, Traveled Outside the [place] in Last 30 Days - Family History Known Family History: Positive: Hypertension, Other - HLD Family History: Dyslipidemia - Social History Alcohol Use: Occasionally Substance Use Type: Reports: None Smoking Status (MU): Never Smoked Tobacco Have You Smoked in the Last Year: No Review of Systems Negative: Fever ENT: Other - positive: nasal congestion Positive: Shortness Of Breath, Cough Gastrointestinal: Negative - constipation Negative: Vomiting, Diarrhea, Nausea All Other Systems Reviewed And Are Negative: Yes Physical Exam - Summary Physical Exam Summary: VITAL SIGNS: Reviewed. GENERAL: Patient is a well-developed and nourished MALE who is lying comfortable in the stretcher. Patient is not in any acute respiratory distress. HEAD AND FACE: No signs of trauma. No ecchymosis, hematomas or skull depressions. No sinus tenderness. EYES: PERRLA, EOMI x 2, No injected conjunctiva, no nystagmus. EARS: Hearing grossly intact. Ear canals and tympanic membranes are within normal limits. MOUTH: Oropharynx within normal limits. NECK: Supple, trachea is midline, no adenopathy, no JVD, no carotid bruit, no c- spine tenderness, neck with full ROM. CHEST: Symmetric, no tenderness at palpation LUNGS: Crackles in both bases of the lungs. CVS: Regular rate and rhythm, S1 and S2 present, no murmurs or gallops appreciated. ABDOMEN: Soft, non-tender. No signs of distention. No rebound no guarding, and no masses palpated. Bowel sounds are normal. EXTREMITIES: FROM in all major joints, no edema, no cyanosis or clubbing. NEURO: Alert and oriented x 3. No acute neurological deficits. Speech is normal and follows commands. SKIN: Dry and warm Triage Information Reviewed: Yes Vital Signs On Initial Exam: Initial Vitals Temp Pulse Resp BP Pulse Ox 98.5 F 94 20 153/91 89 10/17/18 14:36 10/17/18 14:36 10/17/18 14:36 10/17/18 14:36 10/17/18 14:36 Vital Signs Reviewed: Yes Diagnostics - Vital Signs Vital Signs Temp Pulse Resp BP Pulse Ox 10/17/18 14:36 98.5 F 94 20 153/91 89 - Laboratory Result Diagrams: 10/17/18 15:12 10/17/18 15:12 Lab Statement: Any lab studies that have been ordered have been reviewed, and results considered in the medical decision making process. - Radiology CXR Radiology Interpretation Completed By: Radiologist Summary of Radiographic Findings: BILATERAL INFILTRATES SLIGHTLY IMPROVED SUGGESTIVE OF PNEUMONIA. ED physician has reviewed this imaging report. - EKG 14:58 Cardiac Rate: NL - 79 bpm EKG Rhythm: Sinus Rhythm Summary of EKG Findings: no ST elevations Course/Dx - Course Assessment/Plan: A 63 y/o male presents to [facility] with a chief complaint of SOB since 10/11/18. He rates his pain as a 0/10. The patient was recently diagnosed with PNA on 10/13/[address] Ndiaye when his O2 level was at 88. The patient claims that he has been sick but has been feeling slightly better each day. He has been taking doxycycline, prednisone and cough medicine. He denies any CP, N/V/D or constipation. The patient complains of coughing up mucus and congestion. He states that his symptoms started with a fever that has since been resolved. He claims that he has been sleeping through the night and that the morning of 10/17/18 he was feeling good walking up stairs and doing laundry. He denies a SHx and states that he gets occasional allergies. Blood work without any significant abnormality except for glucose of 124, AST is 56, AST is 1:15, troponin was 0.00, C-reactive protein is 57.9. Chest x-ray impression: Bilateral infiltrates slightly improve suggestive of pneumonia. Since the patient is hypoxic and tachycardic I give the patient IV fluids, Rocephin and azithromycin to treat the pneumonia. He seems that the patient is failing to outpatient treatment. I discussed my physical exam, findings and test results with Dr. Boles from the hospitalist services and he agrees to admit patient to his services. Patient is hemodynamically stable alert and oriented x 3. Addendum: After the patient was seen by the hospitalist he reported that he doesn't want to stay in the hospital any longer. He reports that he is feeling better and that he is not short of breath. Hospitalist and they'll consult for him, and they recommend continued to with antibiotics and the his albuterol. I went and talked to the patient and actually rechecked in the oxygen saturation and he is only 89-90%. He doesn't have any oxygen at home. Therefore. I strongly recommended for the patient to stay for further workup and management however he reclined. He was signed against medical advice. I extensively discussed with the patient the benefits and risk of leaving AMA. I also discussed the alternatives to leaving AMA, however, the patient still insist to leave the hospital AMA. The patient is clinically sober , free from distracting injury, appears to have intact insight and judgment and reason and in my opinion has the capacity to make decisions. Patient has full capacity and is cognitively intact. The patient presents with hypoxia, tachycardia and currently being treated for pneumonia with doxycycline, I have explained that I am concerned with worsening pneumonia, hypoxia and may represent a life threatening situation. The patient verbalizes the understanding of my concerns. I have also explained the results of the labs and even though they are abnormal. The primary nurse and the charge nurse also strongly recommended that the patient should not leave AMA. Patient understands the risk of leaving AMA, which includes but is not restricted to . Patient signed the AMA form. Patient was also advised to return to ED if he changes his mind or if the symptoms worsen or other symptoms appear. Patient understands and agrees. Again, I discussed all the findings and test results with the patient. Patient was instructed to return to the emergency room immediately if any of the symptoms return or worsens. Plan of care was discussed with the patient and understands and agrees. All questions were answered at patient satisfaction. There were no further complaints or concerns. Patient signed AMA and he was discharged AMA. - Diagnoses Provider Diagnoses: Pneumonia, Hypoxia - Physician Notifications Discussed Care of Patient With: Yousif Boles Time Discussed With Above Provider: 18:00 Instructed by Provider To: Admit As Inpatient Discharge - Sign-Out/Discharge Documenting (check all that apply): Patient Departure - DC - Discharge Plan Condition: Stable Disposition: HOME Referrals: Sarmad Ndiaye MD [Primary Care Provider] - 3 Days Additional Instructions: Return to the ED for any new or worsening symptoms. - Billing Disposition and Condition Condition: STABLE Disposition: Home - Attestation Statements Document Initiated by Scribe: Yes Documenting Scribe: Isaias Betts Provider For Whom Scribe is Documenting (Include Credential): Rohit Conde MD Scribe Attestation: I, Isaias Betts, scribed for Rohit Conde MD on 10/17/18 at 2108. Scribe Documentation Reviewed: Yes Provider Attestation: The documentation as recorded by the scribe, Isaias Betts accurately reflects the service I personally performed and the decisions made by me, Rohit Conde MD Status of Scribe Document: Viewed
--- OUTSIDE RECORDS SUMMARY | 2018-10-17 15:04 | XMS REPORT ---
:1955 External Reference #:[id number] Author Organization [facility] Address [address] [place] [address] Phone [phone] Care Team Providers Name Role Phone Sarmad Ndiaye MD Care Team Information Client Project Coordinator Unavailable Sarmad Ndiaye MD Primary Care Physician Unavailable Payers Type Date Identification Numbers Payment Provider Subscriber Commercial Policy Number: [id number] [facility] Plan Rafael Kramer PayID: [id number] [address] [place] [address] Problems Date Description Provider Status Onset: 02/06/2007 Hyperlipidemia Sarmad Ndiaye M.D. Active Onset: 02/06/2007 Degenerative joint disease involving Sarmad Ndiaye M.D. Active multiple joints Onset: 02/06/2007 Degeneration of intervertebral disc Sarmad Ndiaye M.D. Active Onset: 02/06/2007 Irritable bowel syndrome Sarmad Ndiaye M.D. Active Onset: 02/06/2007 Allergic rhinitis Sarmad Ndiaye M.D. Active Onset: 03/18/2012 Arthralgia of the lower leg Sarmad Ndiaye M.D. Active Onset: 10/27/2011 Stomatitis Eddie Delong M.D. Active Family History Date Family Member(s) Problem(s) Comments Father Chronic Obstructive Pulmonary Disease (COPD) smoker Mother Chronic Obstructive Pulmonary Disease (COPD) smoker First Sister Hyperlipidemia Social History Type Date Description Comments Cigarette Use Nonsmoker ETOH Use Denies alcohol use Smoking Patient has never smoked Exercise Type/Frequency Current Exercises sporadically Seat Belt/Car Seat Always uses a seat belt Smoke Alarms There are smoke alarms in the house Allergies, Adverse Reactions, Alerts Date Description Reaction Status Severity Comments 02/28/2006 Statin active Myalgias 02/28/2006 Fibrate active Rash 07/08/2009 Zithromax active 07/08/2009 Augmentin active 07/16/2010 Biaxin active Medications Medication Date Status Form Strength Qnty SIG Indications Ordering Provider Bentyl 11/22 Active Capsules 10mg 30caps 1 po bid Sarmad A. prn Darloco, spasms M.D. Astelin 03/19 Active prn Family /[facility] Zyrtec Active Capsules 10mg 10caps q.d Unknown Allergy /0000 Curcumin Active Powder 95% Unknown Extract L-Lysine Active Tablets 500mg twice a Unknown day prn Magnesium Active Tablets 500mg qd prn Mupirocin 11/23 Hx Ointment 2% 44gm apply two L03.021 Sarmad A. /2015 times a Darlow, - day as M.D. 12/05 directed Clobetasol 03/08 Hx Cream 0.05% 60gm apply two R21 Sarmad A. Propionate times a Darlow, - day as M.D. 01/27 directed Cephalexin 03/24 Hx Capsules 500mg 21caps 1 po tid 381.00 Cindi x 7 days Alvarez Ambrosio Afnp-C 03/31 Cephalexin 03/13 Hx Capsules 500mg 30caps 1 po tid 381.00 x 10 Brown, HR DIRECTOR - days 03/23 Ketoconazole 04/19 Hx Cream 2% 60gm apply 782.1 Sarmad A. thin Darloco, - layer bid M.D. 05/03 to affected area. Thumb Spica 11/22 Hx RightLarge wear 727.05 Sarmad A. Spl except to Zelda, - sleep M.D. 12/04 Levaquin 07/20 Hx Tablets 500mg 10tabs 1 po qd x 10 days Jan, - [facility] [employer] 11/22 Keflex 07/16 Hx Capsules 500mg 20caps 1 po bid 382.00 x10 days Jan, - [employer] 07/20 Allerx Dose 08/11 Hx Misc 20units 1 po bid 472.1 Sarmad A. x 10 days Zelda - Mahendra 08/21 Augmentin 07/08 Hx Tablets 875mg 20tabs 1 po bid Edide T. with food Sindi - M.DCharles 07/14 Biaxin 07/08 Hx Tablets 500mg 20tabs 1 po bid Eddie T. Sindi - M.DCharles 08/11 Zithromax 07/06 Hx Tablets 250mg 6Tabs 2 po qd Eddie T. today , Sindi, - then 1 po M.D. 07/08 qd times 4 Prilosec OTC 02/06 Hx Capsules 20mg 30caps 1 PO qd [facility] [place] Claritin 01/28 Hx Tablets 10mg 0tabs 1 po qd for [facility] [place] Bentyl 01/28 Hx Capsules 10mg 40caps 1-2 PO Q8 Eddie T. Hours prn Sindi, - Abd M.DCharles 07/06 Cramps /2008 Singular 07/13 Hx 10mg. 30units 1 Tablet Sarmad A. /2004 Every Darloco, - Day. M.DCharles 07/06 Proventil HFA 07/13 Hx Aerosol 90mcg/Dos 1units 2 Puffs Sarmad A. /2004 e qid prn Zelda - Wheezing M.DCharles 10/27 Questran 07/28 Hx 378Gram 4 Grams Sarmad A. /2003 qd Zelda, - M.D. 01/31 Zetia 07/28 Hx 10mg 30units 1 po qd Sarmad A. /2003 Zelda - M.D. 01/31 Bextra 07/28 Hx 20mg 30units one po Sarmad A. /2003 daily as Zelda, - directed M.D. 01/31 Celebrex 06/29 Hx Tabs 200mg 60tabs 1 po Sarmad A. /2003 qd-bid Zelda - M.D. 01/31 Flonase 12/03 Hx 50mcg 1units 2 sprays Sarmad A. /2000 q nostril DarAlvarez adan M.D. 10/17 Zyrtec 12/03 Hx Tabs 10mg 90tabs 1 po qd Sarmad Field nuzhatn Alvarez Ndiaye M.D. 01/28 Zithromax 12/03 Hx 250mg 6units 2 Tabs Andreas Lazo /2000 Day 1 Alvarez Dale M.D. 12/08 1 Tab qd Days 2 Thru 5 Clotrimazole Hx Cream 1% 30gm apply to Unknown /0000 affected - area bid 10/27 Tizanidine Hx Capsules 2mg 1-2 by Unknown HCL / mouth - three 05/29 times day as needed Hyoscyamine Hx Tablets 0.125mg 60tabs 1-2 tab Kori Sulfate under Khloe, - tongue [employer] [employer] 10/17 4-6hrs needed Medications Administered in Office Medication Date Status Form Strength Qnty SIG Indications Ordering Provider Influenza Virus Administered Injection Sarmad Moreira, Primo Collins M.D. Dna, Hemagglutnin Protein On Immunizations CPT Code Status Date Vaccine Lot # [id number] Given 09/13/2017 Influenza vac quadrivalent preservative free [id number] 3yrs and up [id number] Given 09/12/2016 Influenza Vac, Quadrivalent, Slit Virus, Im [id number] Given 08/30/2015 Influenza Vac, Quadrivalent, Slit Virus, Im [id number] Given 08/29/2014 DO Not Use Split Influenza Virus Vaccine [id number] 45374 Given 10/11/2012 DO Not Use Split Influenza Virus Vaccine [id number] Given 11/22/2010 DO Not Use Split Influenza Virus Vaccine [id number] Vital Signs Date Vital Result Comment 10/17/2018 BP Systolic 156 mmHg BP Diastolic 84 mmHg Heart Rate 97 /min Body Temperature 97.3 F Respiratory Rate 16 /min O2 % BldC Oximetry 88 % Height 72 inches 6'0" Weight 166.00 lb BMI (Body Mass Index) 22.5 kg/m2 02/27/2018 BP Systolic 140 mmHg BP Diastolic 86 mmHg Heart Rate 68 /min Body Temperature 98.2 F Respiratory Rate 16 /min Height 72 inches 6'0" Weight 178.00 lb BMI (Body Mass Index) 24.1 kg/m2 07/23/2017 BP Systolic 146 mmHg BP Diastolic 86 mmHg Heart Rate 84 /min Body Temperature 98.6 F Height 72 inches 6'0" Weight 173.25 lb BMI (Body Mass Index) 23.5 kg/m2 12/05/2016 BP Systolic 150 mmHg BP Diastolic 80 mmHg Heart Rate 78 /min Body Temperature 99.0 F Respiratory Rate 16 /min Height 72 inches 6'0" Weight 176.00 lb BMI (Body Mass Index) 23.9 kg/m2 09/12/2016 BP Systolic 124 mmHg BP Diastolic 76 mmHg Heart Rate 72 /min Body Temperature 97.5 F Respiratory Rate 18 /min Height 72 inches 6'0" Weight 172.00 lb BMI (Body Mass Index) 23.3 kg/m2 11/23/2015 BP Systolic 128 mmHg BP Diastolic 78 mmHg Heart Rate 68 /min Body Temperature 97.4 F Respiratory Rate 18 /min Height 72 inches 6'0" Weight 173.00 lb BMI (Body Mass Index) 23.5 kg/m2 05/29/2015 BP Systolic 124 mmHg BP Diastolic 78 mmHg Heart Rate 72 /min Body Temperature 97.1 F Respiratory Rate 18 /min Height 72 inches 6'0" Weight 172.00 lb BMI (Body Mass Index) 23.3 kg/m2 05/21/2015 BP Systolic 120 mmHg BP Diastolic 80 mmHg Heart Rate 68 /min Body Temperature 98.0 F Respiratory Rate 18 /min Height 72 inches 6'0" Weight 172.00 lb BMI (Body Mass Index) 23.3 kg/m2 03/08/2015 BP Systolic 132 mmHg BP Diastolic 78 mmHg Heart Rate 72 /min Body Temperature 97.2 F Respiratory Rate 16 /min Height 72 inches 6'0" Weight 173.00 lb BMI (Body Mass Index) 23.5 kg/m2 03/24/2014 BP Systolic 118 mmHg BP Diastolic 72 mmHg Heart Rate 72 /min Body Temperature 97.7 F Respiratory Rate 16 /min Height 72 inches 6'0" Weight 173.00 lb BMI (Body Mass Index) 23.5 kg/m2 03/13/2014 BP Systolic 138 mmHg BP Diastolic 72 mmHg Heart Rate 74 /min Body Temperature 98.5 F Height 72 inches 6'0" Weight 173.00 lb BMI (Body Mass Index) 23.5 kg/m2 01/21/2014 BP Systolic 150 mmHg BP Diastolic 84 mmHg Heart Rate 80 /min Body Temperature 97.3 F Respiratory Rate 16 /min Height 72 inches 6'0" Weight 172.00 lb BMI (Body Mass Index) 23.3 kg/m2 12/30/2012 BP Systolic 130 mmHg BP Diastolic 80 mmHg Heart Rate 68 /min Body Temperature 97.8 F Respiratory Rate 16 /min O2 % BldC Oximetry 98 % Height 72 inches 6'0" Weight 177.00 lb BMI (Body Mass Index) 24.0 kg/m2 04/11/2012 BP Systolic 140 mmHg BP Diastolic 80 mmHg Heart Rate 76 /min Body Temperature 98.4 F Respiratory Rate 16 /min Height 72 inches 6'0" Weight 176.00 lb BMI (Body Mass Index) 23.9 kg/m2 03/18/2012 BP Systolic 140 mmHg BP Diastolic 80 mmHg Heart Rate 72 /min Body Temperature 98.4 F Respiratory Rate 12 /min Height 72 inches 6'0" Weight 179.00 lb BMI (Body Mass Index) 24.3 kg/m2 10/27/2011 BP Systolic 136 mmHg BP Diastolic 70 mmHg Heart Rate 76 /min Body Temperature 97.3 F Respiratory Rate 20 /min Height 72 inches 6'0" Weight 183.00 lb BMI (Body Mass Index) 24.8 kg/m2 04/19/2011 BP Systolic 136 mmHg BP Diastolic 80 mmHg Heart Rate 76 /min Body Temperature 97.9 F Respiratory Rate 16 /min Height 72 inches 6'0" Weight 172.00 lb BMI (Body Mass Index) 23.3 kg/m2 11/22/2010 BP Systolic 124 mmHg BP Diastolic 80 mmHg Heart Rate 76 /min Body Temperature 97.8 F Respiratory Rate 16 /min Height 72 inches 6'0" Weight 178.00 lb BMI (Body Mass Index) 24.1 kg/m2 07/16/2010 BP Systolic 128 mmHg BP Diastolic 80 mmHg Heart Rate 76 /min Body Temperature 97.4 F Height 72 inches 6'0" Weight 174.00 lb BMI (Body Mass Index) 23.6 kg/m2 08/11/2009 BP Systolic 130 mmHg BP Diastolic 80 mmHg Heart Rate 76 /min Body Temperature 97.8 F Respiratory Rate 12 /min Weight 176.00 lb 07/14/2009 BP Systolic 110 mmHg BP Diastolic 78 mmHg Heart Rate 78 /min Body Temperature 97.8 F Weight 169.00 lb 07/06/2009 BP Systolic 120 mmHg BP Diastolic 84 mmHg Heart Rate 88 /min Body Temperature 98.3 F Height 72 inches 6'0" Weight 173.00 lb BMI (Body Mass Index) 23.5 kg/m2 01/21/2009 BP Systolic 142 mmHg BP Diastolic 70 mmHg Heart Rate 72 /min Body Temperature 98.5 F Respiratory Rate 16 /min Height 72 inches 6'0" Weight 181.00 lb BMI (Body Mass Index) 24.5 kg/m2 12/24/2008 BP Systolic 144 mmHg BP Diastolic 80 mmHg Heart Rate 64 /min Body Temperature 97.0 F Respiratory Rate 16 /min Height 72 inches 6'0" Weight 178.00 lb BMI (Body Mass Index) 24.1 kg/m2 07/09/2007 BP Systolic 132 mmHg BP Diastolic 78 mmHg Heart Rate 78 /min Respiratory Rate 18 /min Height 72 inches 6'0" Weight 175.00 lb BMI (Body Mass Index) 23.7 kg/m2 06/15/2007 BP Systolic 130 mmHg BP Diastolic 70 mmHg Heart Rate 80 /min Height 72 inches 6'0" Right Visual Acuity Distance 20/20 Corrected Left Visual Acuity Distance 20/20 03/19/2007 BP Systolic 102 mmHg BP Diastolic 64 mmHg Heart Rate 80 /min Height 72 inches 6'0" Weight 171.00 lb BMI (Body Mass Index) 23.2 kg/m2 02/06/2007 BP Systolic 124 mmHg BP Diastolic 70 mmHg Heart Rate 76 /min Respiratory Rate 16 /min Height 72 inches 6'0" Weight 174.00 lb BMI (Body Mass Index) 23.6 kg/m2 01/28/2007 BP Systolic 130 mmHg BP Diastolic 80 mmHg Heart Rate 72 /min Body Temperature 98.4 F Height 72 inches 6'0" Weight 180.00 lb BMI (Body Mass Index) 24.4 kg/m2 02/28/2006 BP Systolic 120 mmHg BP Diastolic 80 mmHg Heart Rate 16 /min Respiratory Rate 16 /min Height 72 inches 6'0" Weight 176.00 lb BMI (Body Mass Index) 23.9 kg/m2 01/31/2006 BP Systolic 132 mmHg BP Diastolic 80 mmHg Heart Rate 72 /min Respiratory Rate 16 /min Height 72 inches 6'0" Weight 176.00 lb BMI (Body Mass Index) 23.9 kg/m2 07/13/2005 BP Systolic 126 mmHg BP Diastolic 80 mmHg Heart Rate 72 /min Height 72 inches 6'0" Weight 174.00 lb BMI (Body Mass Index) 23.6 kg/m2 07/28/2004 BP Systolic 146 mmHg BP Diastolic 88 mmHg Heart Rate 72 /min Height 72 inches 6'0" Weight 178.00 lb BMI (Body Mass Index) 24.1 kg/m2 06/29/2004 BP Systolic 120 mmHg BP Diastolic 70 mmHg Heart Rate 80 /min Height 72 inches 6'0" Weight 177.00 lb BMI (Body Mass Index) 24.0 kg/m2 10/08/2003 BP Systolic 120 mmHg BP Diastolic 82 mmHg Heart Rate 76 /min Height 72 inches 6'0" Weight 167.00 lb BMI (Body Mass Index) 22.6 kg/m2 11/25/2001 BP Systolic 130 mmHg BP Diastolic 80 mmHg Heart Rate 80 /min Height 72 inches 6'0" Weight 184.00 lb BMI (Body Mass Index) 25.0 kg/m2 01/25/2001 BP Systolic 124 mmHg BP Diastolic 80 mmHg Heart Rate 72 /min Height 72 inches 6'0" Weight 184.00 lb BMI (Body Mass Index) 25.0 kg/m2 12/03/2000 BP Systolic 150 mmHg BP Diastolic 80 mmHg Heart Rate 72 /min Height 72 inches 6'0" Weight 181.00 lb BMI (Body Mass Index) 24.5 kg/m2 Right Visual Acuity Distance 20/20 Glasses Left Visual Acuity Distance 20/20 Results Test Date Test Result H/L Range Note Rapid Influenza A & B 10/13/2018 Influenza A Molecular NEGATIVE Negative 1 Molecular Influenza B Molecular NEGATIVE Negative Laboratory test finding 02/19/2018 Troponin I 0.00 ng/mL <0.04 CBC Auto Diff 02/19/2018 White Blood Count 8.0 10^3/uL 3.5-10.8 Red Blood Count 4.75 10^6/uL 4.0-5.4 Hemoglobin 14.8 g/dL 14.0-18.0 Hematocrit 43 % 42-52 Mean Corpuscular Volume 90 fL 80-94 Mean Corpuscular Hemoglobin 31 pg 27-31 Mean Corpuscular HGB Conc 35 g/dL 31-36 Red Cell Distribution Width 14 % 10.5-15 Platelet Count 190 10^3/uL 150-450 Mean Platelet Volume 9.2 um3 7.4-10.4 Abs Neutrophils 5.4 10^3/uL 1.5-7.7 Abs Lymphocytes 1.8 10^3/uL 1.0-4.8 Abs Monocytes 0.6 10^3/uL 0-0.8 Abs Eosinophils 0.2 10^3/uL 0-0.6 Abs Basophils 0 10^3/uL 0-0.2 Abs Nucleated RBC 0 10^3/uL Granulocyte % 66.9 % 38-83 Lymphocyte % 22.8 % Low 25-47 Monocyte % 7.5 % High 0-7 Eosinophil % 2.2 % 0-6 Basophil % 0.6 % 0-2 Nucleated Red Blood Cells % 0 Laboratory test finding 02/19/2018 Lactic Acid 1.5 mmol/L 0.5-2.0 2 Troponin I 0.00 ng/mL <0.04 Comp Metabolic Panel 02/19/2018 Sodium 139 mmol/L 139-145 Potassium 3.4 mmol/L Low 3.5-5.0 Chloride 102 mmol/L 101-111 Co2 Carbon Dioxide 29 mmol/L 22-32 Anion Gap 8 mmol/L 2-11 Glucose 112 mg/dL High 70-100 Blood Urea Nitrogen 20 mg/dL 6-24 Creatinine 1.09 mg/dL 0.67-1.17 BUN/Creatinine Ratio 18.3 8-20 Calcium 9.4 mg/dL 8.6-10.3 Total Protein 7.4 g/dL 6.4-8.9 Albumin 4.2 g/dL 3.2-5.2 Globulin 3.2 g/dL 2-4 Albumin/Globulin Ratio 1.3 1-3 Total Bilirubin 0.40 mg/dL 0.2-1.0 Alkaline Phosphatase 57 U/L 34-104 Alt 28 U/L 7-52 Ast 25 U/L 13-39 Egfr Non- 68.3 >60 Egfr 87.9 >60 3 Laboratory test finding 02/19/2018 D Dimer Quantitative < 200 ng/mL Less Than 230 4 TSH (Thyroid Stim Horm) 2.21 mcIU/mL 0.34-5.60 Free T4 (Free Thyroxine) 0.68 ng/dL 0.61-1.12 Laboratory test finding 02/07/2018 PSA Screening 2.931 ng/mL 0-4.0 5 Ict Hemoccult (Fma) 10/09/2016 Ict Hemoccult (1) 09/13/16 neg Ict Hemoccult-(2) 09/14/16 neg Ict-Hemoccult (3) 09/17/16 neg Laboratory test finding 09/12/2016 PSA Screening 2.229 ng/mL 0-4.000 6 Vitamin D Total 25(Oh) 24.1 ng/mL Low 30-50 7 Hepatitis C Antibody Nonreactive Nonreactive 8 Comp Metabolic Panel 09/12/2016 Sodium 137 mmol/L 133-145 Potassium 4.0 mmol/L 3.5-5.0 Chloride 100 mmol/L Low 101-111 Co2 Carbon Dioxide 31 mmol/L 22-32 Anion Gap 6 mmol/L 2-11 Glucose 98 mg/dL 70-100 Blood Urea Nitrogen 14 mg/dL 6-24 Creatinine 0.92 mg/dL 0.67-1.17 BUN/Creatinine Ratio 15.2 8-20 Calcium 9.5 mg/dL 8.6-10.3 Total Protein 7.0 g/dL 6.4-8.9 Albumin 4.3 g/dL 3.2-5.2 Globulin 2.7 g/dL 2-4 Albumin/Globulin Ratio 1.6 1-3 Total Bilirubin 0.50 mg/dL 0.2-1.0 Alkaline Phosphatase 55 U/L 34-104 Alt 25 U/L 7-52 Ast 24 U/L 13-39 Egfr Non- 83.4 >60 Egfr 107.2 >60 9 Lipid Profile (Trig/Chol/HDL) 09/12/2016 Triglycerides 278 mg/dL 10 Cholesterol 331 mg/dL 11 HDL Cholesterol 51.8 mg/dL 12 LDL Cholesterol 224 mg/dL 13 Laboratory test finding 11/23/2015 Wound Culture/Sensi SEE RESULT BELOW 14 Ict Hemoccult (Fma) 07/08/2015 Ict Hemoccult (1) 05/29/15 NEG Ict Hemoccult-(2) 05/30/15 NEG Ict-Hemoccult (3) 05/31/15EG Lipid Profile (Trig/Chol/HDL) 05/29/2015 Triglycerides 189 mg/dL 15, 16 Cholesterol 290 mg/dL 15, 17 HDL Cholesterol 47.7 mg/dL 15, 18 LDL Cholesterol 205 mg/dL 15, 19 Comp Metabolic Panel 05/29/2015 Sodium 137 mmol/L 133-145 15 Potassium 4.5 mmol/L 3.5-5.0 15 Chloride 99 mmol/L Low 101-111 15 Co2 Carbon Dioxide 32 mmol/L 22-32 15 Anion Gap 6 mmol/L 2-11 15 Glucose 92 mg/dL 70-100 15 Blood Urea Nitrogen 14 mg/dL 6-24 15 Creatinine 1.01 mg/dL 0.67-1.17 15 BUN/Creatinine Ratio 13.9 8-20 15 Calcium 9.6 mg/dL 8.6-10.3 15 Total Protein 7.1 g/dL 6.4-8.9 15 Albumin 4.5 g/dL 3.2-5.2 15 Globulin 2.6 g/dL 2-4 15 Albumin/Globulin Ratio 1.7 1-3 15 Total Bilirubin 0.40 mg/dL 0.2-1.0 15 Alkaline Phosphatase 61 U/L 34-104 15 Alt 20 U/L 7-52 15 Ast 19 U/L 13-39 15 Egfr Non- 75.1 >60 15 Egfr 96.6 >60 15, 20 Laboratory test finding 05/29/2015 PSA Screening 2.253 ng/mL 0-4.000 15 , 21 Pthi 05/29/2015 PTH Intact 3.8 pmol/L 1.3-9.3 15 Calcium (PTH Intact) 9.6 mg/dL 8.6-10.3 15 Laboratory test finding 05/29/2015 TSH (Thyroid Stim 3.85 ?IU/mL 0.34- 5.60 15, 22 Horm) Vitamin D Total 25(Oh) 25.1 ng/mL Low 30-50 15, 23 Laboratory test finding 05/21/2015 Blood Urea Nitrogen BUN 17 mg/dL 6-24 Creatinine 05/21/2015 Creatinine 0.93 mg/dL 0.67-1.17 Egfr Non- 82.6 >60 Egfr 106.2 >60 24 Protein Electrophoresis 01/21/2014 Total Protein(Pep) 7.2 g/dL 6.3 - 7.9 Albumin 3.4 g/dL 3.4-4.7 Alpha-1 Globulin 0.3 g/dL 0.1-0.3 Alpha-2 Globulin 1.0 g/dL 0.6-1.0 Beta Globulin 1.1 g/dL 0.7-1.2 Gamma Globulin 1.3 g/dL 0.6-1.6 Albumin/Globulin Ratio 0.92 Impression See Comment 25 Laboratory test finding 01/21/2014 C Reactive Protein < 1.00 mg/L < 5.00 26 Erythrocyte Sed Rate 20 mm/Hr 0-20 27 TSH (Thyroid Stimulating Horm) 1.79 IU/mL 0.34-5.60 28 LDH 162 U/L 140-271 29 CBC With Manual Diff 01/21/2014 White Blood Count 7.0 10^3/uL 4.8-10.8 Red Blood Count 5.11 10^6/uL 4.0-5.4 Hemoglobin 16.6 g/dL 14.0-18.0 Hematocrit 47 % 42-52 Mean Corpuscular Volume 92 fL 80-94 Mean Corpuscular Hemoglobin 33 pg High 27-31 Mean Corpuscular HGB Conc 35 g/dL 31-36 Red Cell Distribution Width 14 % 10.5-15 Platelet Count 201 10^3/uL 150-450 Mean Platelet Volume 11 um3 High 7.4-10.4 Abs Neutrophils 4.5 10^3/uL 1.5-7.7 Abs Lymphocytes 2.0 10^3/uL 1.0-4.8 Abs Monocytes 0.4 10^3/uL 0-0.8 Abs Eosinophils 0.1 10^3/uL 0-0.6 Abs Basophils 0 10^3/uL 0-0.2 Abs Nucleated RBC 0 10^3/uL Neutrophil % 58 % 38-83 Band % 1 % 0-8 Lymphocytes % 33 % 25-47 Monocytes % 3 % 0-13 Eosinophils % 3 % 0-6 Basophil % 1 % 0-2 Reactive Lymph % 1 % 0-6 RBC Morphology Normal Normal Comp Metabolic Panel 01/21/2014 Sodium 137 mmol/L 133-145 Potassium 4.0 mmol/L 3.7-5.6 Chloride 101 mmol/L 101-111 Co2 Carbon Dioxide 30 mmol/L 22-32 Anion Gap 6 mmol/L 2-11 Glucose 99 mg/dL 70-100 Blood Urea Nitrogen 20 mg/dL 6-24 Creatinine 1.00 mg/dL 0.67-1.17 BUN/Creatinine Ratio 20.0 8-20 Calcium 9.6 mg/dL 8.6-10.3 30 Total Protein 7.2 g/dL 6.4-8.9 Albumin 4.5 g/dL 3.2-5.2 Globulin 2.7 g/dL 2-4 Albumin/Globulin Ratio 1.7 1-3 Total Bilirubin 0.30 mg/dL 0.2-1.0 Alkaline Phosphatase 59 U/L 34-104 Alt 19 U/L 7-52 Ast 18 U/L 13-39 Egfr Non- 76.5 >60 Egfr 98.4 >60 31 Egfr (Calculated) 12/30/2012 Estimated GFR (CALCULATED) 32 Egfr >60 32, 33 Egfr, -Stateless >60 32, 34 Comprehensive Metabolic 12/30/2012 Glucose 91 mg/dL 70-100 32 BUN 18 mg/dL 5-21 32 Creatinine, Serum 0.93 mg/dL 0.60-1.30 32 Sodium 139 mmol/L 136-146 32 Potassium 4.8 mmol/L 3.5-5.3 32 Chloride 102 mmol/L 98-110 32 Carbon Dioxide 30 mmol/L 20-32 32 Albumin 4.6 g/dL 3.5-4.7 32 Protein, Total 7.7 g/dL 6.4-8.3 32 Calcium 9.6 mg/dL 8.4-10.4 32 Alkaline Phosphatase 75 U/L 10-118 32 Sgot (Ast) 21 U/L 3-40 32 SGPT (Alt) 23 U/L 7-50 32 Bilirubin, Total 0.50 mg/dL 0.30-1.20 32 Laboratory test finding 12/30/2012 Sedimentation Rate 69 MM/HR High 0-15 32 Ebv Acute Infection Abs 12/30/2012 Ebv Ab Vca, IgM <0.2 AI 0.0-0.8 32, 35 Ebv Early Antigen Ab, IgG <0.2 AI 0.0-0.8 32, 36 Ebv Ab Vca, IgG 7.4 AI High 0.0-0.8 32, 37 Ebv Nuclear Antigen Ab, IgG >8.0 AI High 0.0-0.8 32, 38 Interpretation: SEE NOTE 32, 39 CBC 12/30/2012 WBC 5.6 x10E3/uL 4.3-10.9 32 RBC 5.13 x10E6/uL 4.70-6.20 32 Hemoglobin 15.8 g/dL 13.0-17.0 32 Hematocrit 47.8 % 39.0-50.0 32 MCV 93.2 fl 82.0-98.0 32 MCH 30.8 pg 27.5-33.5 32 MCHC 33.1 g/dL 32.0-36.0 32 RDW 13.6 % 11.5-14.5 32 Platelet Count 213 x10E3/uL 130-400 32 MPV 12.7 fl High 6.5-10.5 32 Segmented Neutrophils 57.7 % 44.0-74.0 32 Lymphocytes 32.8 % 15.0-45.0 32 Monocytes 6.8 % 2.0-13.0 32 Eosinophils 2.3 % 0.0-6.0 32 Basophils 0.4 % 0.0-2.0 32 Neutrophil Absolute 3.2 x10E3/uL 1.4-7.0 32 Lymphocytes Absolute 1.8 x10E3/uL 1.0-3.4 32 Monocyte Absolute 0.4 x10E3/uL 0.2-1.0 32 Eosinophil Absolute 0.1 x10E3/uL 0.0-0.5 32 Basophil Absolute 0.0 x10E3/uL 0.0-0.2 32 CMV Abs Igg/Igm 12/30/2012 CMV Ab, IgG (Cytomegalovirus) <0.9 index 0.0- 0.8 32, 40 CMV Ab, IgM Cytomegalovirus <0.9 index 0.0-0.8 32, 41 CBC Auto Diff 04/12/2012 White Blood Count 5.9 CUMM 4.8-10.8 Red Cell Count 5.00 CUMM 4.6-6.2 Hemoglobin 15.8 g/dL 14.0-18.0 Hematocrit 46 % 42-52 Mean Corpuscular Volume 91 um3 80-94 Mean Corpuscular Hemoglob 32 pg High 27-31 Mean Corpuscular HGB Cone 35 g/dL 32-36 Redcell Distribution WDTH 13 % 10.5-15 Platelet Count 202 CUMM 150-450 Mean Platelet Volume 11.6 um3 High 7.4-10.4 Gran % 59.3 % 38-83 Lymph % 28.8 % 25-47 Mononuclear % 7.2 % 1-9 Eosinophil % 3.5 % 0-6 Basophil % 1.2 % 0-2 Abs Lymphs 1.7 1.0-4.8 Abs Mononuclear 0.4 0-0.8 Absolute Neutrophil Count 3.5 1.5-7.7 Abs Eosinophils 0.2 0-0.6 Abs Basophils 0.1 0-0.2 Comp Metabolic Panel 04/12/2012 Sodium 137 mmol/L 135-145 Potassium 4.7 mmol/L 3.5-5.0 Chloride 100 mmol/L Low 101-111 Co2 (Carbon Dioxide) 30.0 mmol/L 22-32 Anion Gap 7.0 mmol/L 2-11 42 Glucose 83 mg/dL 70-100 BUN 13 mg/dL 6-24 Creatinine 0.8 mg/dL 0.50-1.40 One Over Creatinine 1.25 BUN/Creatinine Ratio 16.3 8-20 Calcium 9.5 mg/dL 8.1-9.9 Total Protein 7.0 GM/DL 6.2-8.1 Albumin 4.1 GM/DL 3.6-5.4 Globulin 2.9 GM/DL 2-4 Albumin/Globulin Ratio 1.4 1-3 Bilirubin Total 1.0 mg/dL 0.4-1.5 43 Alkaline Phosphatase 64 U/L 39-117 Alt (SGPT) 29 U/L 17-63 Ast (Sgot) 26 U/L 12-42 eGFR Non- 99.6 > 60 eGFR 128.1 > 60 44 Laboratory test finding 04/12/2012 PTT (Aptt) 28.4 SEC 25.1-38.5 Protime 04/12/2012 Inr 0.84 Low 0.88-1.13 45 Protime 9.9 SEC Low 10.3-13.5 46 Ua - Micro ([facility]) 04/11/2012 Appearance CLEAR Color YELLOW Glucose NEG Bilirubin NEG Ketones NEG SP Grav <=1.005 Blood LARGE PH 5.5 Protein NEG Urobil 0.2 Nitrite NEG Leukocytes (Fma/CMC/Centrex) NEG Hyaline - /Lpf Granular - /Lpf WBC (a,Centrex) 0-1 RBC 5-8 Mucus - /Lpf Epith RARE /Lpf Bacteria - /Hpf Amorphous - /Lpf Crystals, Fluid (Fma/CMC/CTX) - Z#Comments - Urine Culture & 04/11/2012 M <SEE NOTE> 47 Sensitivi Ict Hemoccult (a) 11/29/2010 Ict Hemoccult (1) NEG Ict Hemoccult-(2) NEG Ict-Hemoccult (3) NEG Comprehensive Metabolic 11/22/2010 Glucose 93 mg/dL 70-100 48 BUN 16 mg/dL 5-21 48 Creatinine, Serum 1.04 mg/dL 0.60-1.30 48 Sodium 139 mmol/L 136-146 48 Potassium 4.8 mmol/L 3.5-5.3 48 Chloride 100 mmol/L 98-110 48 Carbon Dioxide 33 mmol/L High 20-32 48 Albumin 4.6 g/dL 3.5-4.7 48 Protein, Total 7.7 g/dL 6.4-8.3 48 Calcium 9.9 mg/dL 8.4-10.4 48 Alkaline Phosphatase 69 U/L 10-118 48 Sgot (Ast) 32 U/L 3-40 48 SGPT (Alt) 34 U/L 7-50 48 Bilirubin, Total 0.60 mg/dL 0.30-1.20 48 Laboratory test finding 11/22/2010 PSA, Total 1.20 ng/ml 0.00-4.00 48, 49 Vitamin D, 25 Oh 18.1 ng/mL Low 32.0-100.0 48, 50 Ua - Non Micro (Fma) 11/22/2010 Appearance CLEAR Color YELLOW Glucose, Urine (Fma/CMC/CTX) NEG Bilirubin NEG Ketones NEG SP Grav 1.010 Blood NEG PH 6.5 Protein NEG Urobil 0.2 Nitrite NEG Leukocytes (Fma/CMC/Centrex) NEG Lipid Panel 11/22/2010 Cholesterol, Total 311 mg/dL <200 48 Triglycerides 324 mg/dL <150 48 HDL Cholesterol 49 mg/dL 40-60 48 Chol/HDL Cholesterol 6.3 48, 51 LDL Cholesterol, Calc. 197 mg/dL 48, 52 LDL/HDL Cholesterol 4.0 48, 53 Egfr (Calculated) 11/22/2010 Estimated GFR (CALCULATED) 48 Egfr >60 48, 54 Egfr, -Stateless >60 48, 55 Lipid Profile 12/24/2008 Cholesterol, Total 329 mg/dL High 120-200 56, 57 HDL Cholesterol 46 mg/dL 40-60 56 LDL Cholesterol, Calc. 247 mg/dL <130 56, 58 Triglycerides 181 mg/dL 56, 59 LDL/HDL Cholesterol 5.4 56, 60 Chol/HDL Cholesterol 7.2 56, 61 Comprehensive Metabolic 12/24/2008 Glucose 94 mg/dL 70-100 56 BUN 14 mg/dL 5-21 56 Creatinine, Serum 1.2 mg/dL 0.6-1.5 56 Sodium 139 mmol/L 136-146 56 Potassium 4.0 mmol/L 3.5-5.3 56 Chloride 102 mmol/L 98-110 56 Carbon Dioxide 27 mmol/L 20-32 56 Albumin 4.4 g/dL 3.5-4.7 56 Protein, Total 7.1 g/dL 6.4-8.3 56 Calcium 9.1 mg/dL 8.4-10.4 56 Alkaline Phosphatase 61 U/L 10-118 56 Sgot (Ast) 26 U/L 3-40 56 SGPT (Alt) 29 U/L 7-50 56 Bilirubin, Total 0.70 mg/dL 0.30-1.20 56 Laboratory test finding 12/24/2008 PSA 1.1 ng/ml 0.0-4.0 56, 62 GFR, Calculated 12/24/2008 GFR (Calculated) >60 56, 63 Ua - Non Micro (Fma) 12/24/2008 Appearance CLEAR Color YELLOW Glucose, Urine (Fma/CMC/CTX) NEG Bilirubin NEG Ketones NEG SP Grav 1.015 Blood NEG PH 7.5 Protein NEG Urobil 0.2 Nitrite NEG Leukocytes (Fma/[facility]/Centrex) NEG Surgical Pathology 02/03/2008 Surgical Pathology <SEE NOTE > 64 Basic Metabolic 03/13/2007 One Over Creatinine 1.11 Panel Stat Anion Gap 7.0 mmol/L 2-11 65 BUN 16 mg/dL 6-24 Calcium 9.9 mg/dL 8.7-10.2 Chloride 101 mmol/L 101-111 Co2 (Carbon Dioxide) 29.0 mmol/L 22-32 Glucose 95 mg/dL 70-105 Potassium 3.6 mmol/L 3.5-5.0 Sodium 137 mmol/L 135-145 BUN/Creatinine Ratio 17.8 8-20 Creatinine 0.9 mg/dL 0.5-1.4 CBC With Electronic Diff Stat 03/13/2007 White Blood Count 6.8 CUMM 4.8- 10.8 Abs Basophils 0 0-0.2 Abs Eosinophils 0 0-0.6 Absolute Neutrophil Count 4.7 1.5-7.7 Abs Lymphs 1.6 1.0-4.8 Abs Mononuclear 0.4 0-0.8 Basophil % 0.2 % 0-2 Hematocrit 44 % 42-52 Hemoglobin 15.4 g/dL 14.0-18.0 Eosinophil % 0.3 % 0-6 Gran % 69.8 % 38-83 Lymph % 23.2 % 20-45 Mean Corpuscular HGB Cone 35 g/dL 32-36 Mean Corpuscular Hemoglob 31 pg 27-31 Mean Corpuscular Volume 88 um3 80-94 Mean Platelet Volume 10.2 um3 7.4-10.4 Mononuclear % 6.5 % 1-9 Platelet Count 232 CUMM 150-450 Red Cell Count 4.96 CUMM 4.6-6.2 Redcell Distribution WDTH 13 % 10.5-15 Laboratory test finding 02/06/2007 TSH 2.04 mIU/L 0.50-6.00 56 Hepatic 02/06/2007 Albumin 4.5 g/dL 3.8-5.5 56 Alk. Phos. 80 U/L 22-95 56 Alt (SGPT) 21 U/L 10-40 56 Ast (Sgot) 23 U/L 5-34 56 Total Bilirubin 0.7 mg/dL 0.2-1.3 56 Total Protein 7.5 g/dL 6.3-8.1 56 Direct Bilirubin 0.3 mg/dL 0.0-0.6 56 Globulin 3.0 g/dL 2.0-4.8 56 A/G Ratio 1.5 Calc 0.6-2.2 56 Indirect Bilirubin 0.44 0.10-1.00 56 Laboratory test finding 02/06/2007 PSA 0.90 ng/mL 0.00-4.00 56 Ua - Non Micro (Fma) 02/06/2007 Appearance CLEAR Color LT YELLOW Glucose, Urine (Fma/CMC/CTX) NEG Bilirubin NEG Ketones NEG SP Grav 1.010 Blood NEG PH 7.5 Protein NEG Urobil 0.2 Nitrite NEG Leukocytes (Fma/CMC/Centrex) NEG Laboratory test 04/11/2006 [facility] See Image finding LAB Report Lipid Profile 02/06/2006 Cholesterol, 309 mg/dL High 120-200 66, 67 Total HDL Cholesterol 45 mg/dL 40-60 66 LDL Cholesterol, Calc. 213 mg/dL <130 66, 68 Triglycerides 255 mg/dL 66, 69 LDL/HDL Cholesterol 4.7 66, 70 Chol/HDL Cholesterol 6.9 66, 71 Hepatic (Liver) Panel 02/06/2006 Albumin 4.3 g/dL 3.5-4.7 66 Protein, Total 7.0 g/dL 6.4-8.2 66 Alkaline Phosphatase 61 U/L 10-118 66 Sgot (Ast) 25 U/L 3-30 66 SGPT (Alt) 27 U/L 7-40 66 Bilirubin, Total 0.76 mg/dL 0.30-1.20 66 Bilirubin, Direct 0.21 mg/dL 0.00-0.40 66 Bilirubin, Indirect 0.55 mg/dL 0.10-1.10 66 Laboratory test finding 02/06/2006 PSA 0.8 ng/ml 0.0-4.0 66, 72 Lipid Profile 10/31/2004 Triglycerides 497 mg/dL 73 Cholesterol, Total 295 mg/dL High 120.0 - 200.0 74 HDL Cholesterol 56 mg/dL 40.0 - 60.0 Chol/HDL Cholesterol 5.3 75 Hepatic (Liver) Panel 10/31/2004 Albumin 4.4 g/dL 3.5 - 4.7 Protein, Total 7.7 g/dL 6.4 - 8.2 Alkaline Phosphatase 69 U/L 10.0 - 118.0 Sgot (Ast) 33 U/L High 3.0 - 30.0 SGPT (Alt) 44 U/L High 7.0 - 40.0 Bilirubin, Total 0.57 mg/dL 0.3 - 1.2 Bilirubin, Direct 0.10 mg/dL 0.0 - 0.4 Bilirubin, Indirect 0.47 mg/dL 0.1 - 1.1 LDL2 And Risk 1 10/31/2004 LDL Cholesterol * <130 76 LDL/HDL Cholesterol * 77 VLDL * 78 Comprehensive Metabolic 07/20/2004 Glucose 101 mg/dL 61.0 - 110.0 BUN 18 mg/dL 5.0 - 21.0 Creatinine, Serum 1.3 mg/dL 0.6 - 1.5 Sodium 139 mmol/L 136.0 - 146.0 Potassium 4.1 mmol/L 3.5 - 5.3 Chloride 102 mmol/L 98.0 - 107.0 Carbon Dioxide 27 mmol/L 20.0 - 32.0 Albumin 4.6 g/dL 3.5 - 4.7 Protein, Total 8.0 g/dL 6.4 - 8.2 Calcium 10.0 mg/dL 8.4 - 10.6 Alkaline Phosphatase 62 U/L 10.0 - 118.0 Sgot (Ast) 25 U/L 3.0 - 30.0 SGPT (Alt) 25 U/L 7.0 - 40.0 Bilirubin, Total 0.54 mg/dL 0.3 - 1.2 Lipid Profile 07/20/2004 Triglycerides 338 mg/dL 79 Cholesterol, Total 327 mg/dL High 120.0 - 200.0 80 HDL Cholesterol 61 mg/dL High 40.0 - 60.0 LDL Cholesterol, Calc. 198 mg/dL <130 81 LDL/HDL Cholesterol 3.2 82 Chol/HDL Cholesterol 5.4 83 Laboratory test finding 07/20/2004 PSA 0.8 ng/ml 0.0 - 4.0 84 GFR (Calculated) >60 85 Nova Panel Complete [place] 10/08/2003 Antinuclear AB (Nova) NEGATIVE@EIA 86 Rheumatoid Factor (RF) <11.0 IU/mL 0 - 20 Laboratory test finding 10/08/2003 Hla B27 NEGATIVE Anti Dna (SS) Igg, AB NEGATIVE units 0-19 87 CERAMIC COATER MACHINE AB 31 U/mL 0-99 88 Nolen Antibodies 14 U/mL 0-99 89 1 Machine Operator Hop Worker: [id number] [facility] Severe Sepsis and Septic Shock Management Bundle Measure requires all lactic acids initially measuring >2.0 mmol/L be repeated. 3 Because ethnic data is not always readily available, this report includes an eGFR for both -Americans and non- Americans. The National Kidney Disease Education Program (NKDEP) does not endorse the use of the MDRD equation for patients that are not between the ages of 18 and 70, are , have extremes of body size, muscle mass, or nutritional status, or are non- or non-. According to the National Kidney Foundation, irrespective of diagnosis, the stage of the disease is based on the level of kidney function: Stage Description GFR(mL/min/1.73 m(2)) 1 Kidney damage with normal or decreased GFR 90 2 Kidney damage with mild decrease in GFR 60-89 3 Moderate decrease in GFR 30-59 4 Severe decrease in GFR 15-29 5 Kidney failure <15 (or dialysis) 4 Please note: The following may produce a false positive D Dimer test: - Rheumatoid factor greater than 60 IU/ml - Plasma hemoglobin greater than 0.05 gm/dl - Bilirubin greater than 50 mg/dl - Lipids greater than 1000 mg/dl - FDP greater than 20 ug/ml 5 Serum levels of PSA measured using the [employer] [place] DXI Hybritech immunoassay should not be interpreted as absolute evidence of the presence or absence of disease. The PSA value should be used in conjunction with other pertinent clinical diagnostic procedures. The values obtained with different assay methods or kits cannot be used interchangeably. 6 Serum levels of PSA measured using the [employer] [place] DXI Hybritech immunoassay should not be interpreted as absolute evidence of the presence or absence of disease. The PSA value should be used in conjunction with other pertinent clinical diagnostic procedures. The values obtained with different assay methods or kits cannot be used interchangeably. 7 FASTING 3 sst [id number] FASTING 3 sst [id number] 9 Because ethnic data is not always readily available, this report includes an eGFR for both -Americans and non- Americans. The National Kidney Disease Education Program (NKDEP) does not endorse the use of the MDRD equation for patients that are not between the ages of 18 and 70, are , have extremes of body size, muscle mass, or nutritional status, or are non- or non-. According to the National Kidney Foundation, irrespective of diagnosis, the stage of the disease is based on the level of kidney function: Stage Description GFR(mL/min/1.73 m(2)) 1 Kidney damage with normal or decreased GFR 90 2 Kidney damage with mild decrease in GFR 60-89 3 Moderate decrease in GFR 30-59 4 Severe decrease in GFR 15-29 5 Kidney failure <15 (or dialysis) 10 Desirable <150 Borderline high 150-199 High 200-499 Very High >500 11 Desirable <200 Borderline high 200-239 High >239 12 Low <40 Desirable: 40-60 High: >60 13 Desirable: <100 mg/dL Near Optimal: 100-129 mg/dL Borderline High: 130-159 mg/dL High: 160-189 mg/dL Very High: >189 mg/dL 14 SEE RESULT BELOW Name: RAFAEL KRAMER: [address]: Sarmad Ndiaye MD Acct: [id number] Unit: [id number] AGE: 60 Location: [facility] Re11/23/15 SEX: M Status: REG REF SPEC: [id number] SHAHANA: 11/23/15-[address]: Sarmad Ndiaye MD REQ: [id number] RECD: 11/23/15 STATUS: COMP _ SOURCE: WOUND SPDESC: ORDERED: Culture Stain COMMENTS: JEISON SWAB FROM RIGHT FINGER Specimen Description RIGHT FINGER Procedure Result Reported Site Wound/Misc Gram Stain Final 11/23/15- 2013 ML 1+ Neutrophils 2+ Epithelial Cells 3+ Gram Negative Coccobacilli Wound/Misc Culture Final 11/25/15- 1119 ML No Growth Day 2 * ML - MAIN LAB ([facility]) . END OF REPORT * ML=Testing performed at Main Lab DEPARTMENT OF PATHOLOGY, [address] [place] [address] Andreas Jason M.D. Director [facility] # [id number] 15 FASTING split specimen frozen 3 sst's 1 sst pour off frozen 16 Desirable <150 Borderline high 150-199 High 200-499 Very High >500 17 Desirable <200 Borderline high 200-239 High >239 18 Low <40 Desirable: 40-60 High: >60 19 Desirable: <100 mg/dL Near Optimal: 100-129 mg/dL Borderline High: 130-159 mg/dL High: 160-189 mg/dL Very High: >189 mg/dL 20 Because ethnic data is not always readily available, this report includes an eGFR for both -Americans and non- Americans. The National Kidney Disease Education Program (NKDEP) does not endorse the use of the MDRD equation for patients that are not between the ages of 18 and 70, are , have extremes of body size, muscle mass, or nutritional status, or are non- or non-. According to the National Kidney Foundation, irrespective of diagnosis, the stage of the disease is based on the level of kidney function: Stage Description GFR(mL/min/1.73 m(2)) 1 Kidney damage with normal or decreased GFR 90 2 Kidney damage with mild decrease in GFR 60-89 3 Moderate decrease in GFR 30-59 4 Severe decrease in GFR 15-29 5 Kidney failure <15 (or dialysis) 21 Serum levels of PSA measured using the [employer] [place] DXI Hybritech immunoassay should not be interpreted as absolute evidence of the presence or absence of disease. The PSA value should be used in conjunction with other pertinent clinical diagnostic procedures. The values obtained with different assay methods or kits cannot be used interchangeably. 22 FASTING split specimen frozen 3 sst's 1 sst pour off frozen 23 FASTING split specimen frozen 3 sst's 1 sst pour off frozen 24 Because ethnic data is not always readily available, this report includes an eGFR for both -Americans and non- Americans. The National Kidney Disease Education Program (NKDEP) does not endorse the use of the MDRD equation for patients that are not between the ages of 18 and 70, are , have extremes of body size, muscle mass, or nutritional status, or are non- or non-. According to the National Kidney Foundation, irrespective of diagnosis, the stage of the disease is based on the level of kidney function: Stage Description GFR(mL/min/1.73 m(2)) 1 Kidney damage with normal or decreased GFR 90 2 Kidney damage with mild decrease in GFR 60-89 3 Moderate decrease in GFR 30-59 4 Severe decrease in GFR 15-29 5 Kidney failure <15 (or dialysis) 25 RESULT: No apparent monoclonal protein on serum electrophoresis. Test Performed by: [place] [address] Director Call: Jose Read III, M.D. 26 Acute inflammation: >10.00 In accordance with FDA guideline, CRP is now reported in mg/L, previous reporting was in mg/dL. 27 2 pour off tubes with serum 2 sst 2 purple top tube 28 2 pour off tubes with serum 2 sst 2 purple top tube 29 2 pour off tubes with serum 2 sst 2 purple top tube 30 Specimen Lipemic. Result may not be valid. 31 Because ethnic data is not always readily available, this report includes an eGFR for both -Americans and non- Americans. The National Kidney Disease Education Program (NKDEP) does not endorse the use of the MDRD equation for patients that are not between the ages of 18 and 70, are , have extremes of body size, muscle mass, or nutritional status, or are non- or non-. According to the National Kidney Foundation, irrespective of diagnosis, the stage of the disease is based on the level of kidney function: Stage Description GFR(mL/min/1.73 m(2)) 1 Kidney damage with normal or decreased GFR 90 2 Kidney damage with mild decrease in GFR 60-89 3 Moderate decrease in GFR 30-59 4 Severe decrease in GFR 15-29 5 Kidney failure <15 (or dialysis) 32 3SST; 1LAV 33 >59 mL/min/1.73m2 34 >59 mL/min/1.73m2 Note: Persistent reduction for 3 months or more in an eGFR <60 mL/min/1.73m2 defines CKD. Patients with eGFR values >=60 mL/min/1.73m2 may also have CKD if evidence of persistent proteinuria is present. Additional information may be found at www.[email or web address].org/professionals/kdoqi. 35 Negative <0.9 Equivocal 0.9 - 1.0 Positive >1.0 36 Negative <0.9 Equivocal 0.9 - 1.0 Positive >1.0 37 Negative <0.9 Equivocal 0.9 - 1.0 Positive >1.0 38 Negative <0.9 Equivocal 0.9 - 1.0 Positive >1.0 39 EBV Interpretation Chart . Interpretation VCA-IgM EA-IgG VCA-IgG NA-ABS . Susceptible - - - - Acute Infection + +or- +or- - Convalescent Phase +or- +or- + + Chronic or Reactivated - + + +or- Old Infection - - +or- + + Antibody Present - Antibody Absent 40 Negative <0.9 Equivocal 0.9 - 1.0 Positive >1.0 41 Negative <0.9 Equivocal 0.9 - 1.0 Positive >1.0 42 Anion gap measurement may be of limited value in the presence of any alkalosis, especially in a combined acid base disorder. . 43 A metabolite of Naproxen, O-desmethylnaproxen, has been shown to interfere with the Jendrassik-Rice method for measuring total bilirubin. Samples from patients who have taken Naproxen have shown spurious elevation in total bilirubin levels. 44 Because ethnic data is not always readily available, this report includes an eGFR for both -Americans and non- Americans. The National Kidney Disease Education Program (NKDEP) does not endorse the use of the MDRD equation for patients that are not between the ages of 18 and 70, are , have extremes of body size, muscle mass, or nutritional status, or are non- or non-. According to the National Kidney Foundation, irrespective of diagnosis, the stage of the disease is based on the level of kidney function: Stage Description GFR(mL/min/1.73 m(2)) 1 Kidney damage with normal or decreased GFR 90 2 Kidney damage with mild decrease in GFR 60-89 3 Moderate decrease in GFR 30-59 4 Severe decrease in GFR 15-29 5 Kidney failure <15 (or dialysis) 45 Recommended INR for Patients on Oral Anticoagulants Prophylaxis 2.0 - 3.0 Treatment of thrombosis 2.0 - 3.0 Prevention of embolism 2.0 - 3.0 Prevention of embolism from prosthetic heart valves 2.5 - 3.5 46 DIAGNOSIS,TREATMENT,AND THERAPY MUST BE BASED ON THE INR VALUE ALONE. 47 RUN DATE: 04/14/12 [facility] NMI LIVE PAGE 1 RUN TIME: 920 Specimen Inquiry RUN USER: INTERFACE Name: RAFAEL KRAMER Zenaida#: [id number] Status: REG REF Re04/11/12 Age/Sex: 56/M Unit#: [id number] Location: [facility] [place] : 53 SPEC #: [id number] SHAHANA: 04/11/12 STATUS: COMP REQ #: [id number] RECD: 04/12/[address] [facility] [address]: Zelda LU,Sarmad Field SOURCE: URINE ENTR: 04/12/[address]: URINE C S QUERIES: MEDENT REQUISITION # [id number] SPECIMEN DESCRIPTION: URINE, CLEAN CATCH ACT WKST: UR 04/14/12 #1 Procedure Result Verified Site > URINE CULTURE SENSITIVI Final 04/14/12- 0921 ML FINAL: NO GROWTH DAY 2 (<1,000 CFU/mL) ML - [facility] Permit #[id number] [facility] [address] DEPARTMENT OF PATHOLOGY, [facility] DATES [place], [place] [address] [facility] Permit #[id number] Andreas Jason M.D. Director Christoph iDa M.D. Vertical Punch Operator 48 FASTING; 2 SST 49 . Serum PSA results should be used only in conjunction with information available from the clinical evaluation of the patient and other diagnostic procedures. Values obtained with different assay methods or kits cannot be used interchangeably. Results obtained using [employer] ICMA methodology. 50 Recent studies consider the lower limit of 32.0 ng/mL to be a threshold for optimal health. Zane AGUIRRE. J Nutr. 2005 Dec;135(2):317-22. 51 CHOL/HDL Risk Ratio Levels MALE FEMALE 1/2 X Average 3.4 3.3 Average 5.0 4.4 2 X Average 9.5 7.0 3 X Average 24.0 11.0 52 Optimal under 100 mg/dl Near or above Optimal 100 - 129 mg/dl Borderline High 130 - 159 mg/dl High 160 - 189 mg/dl Very High above 190 mg/dl 53 LDL/HDL Risk Ratio Levels MALE FEMALE 1/2 X Average 1.0 1.5 Average 3.6 3.2 2 X Average 6.3 5.0 3 X Average 8.0 6.1 54 >59 mL/min/1.73m2 55 >59 mL/min/1.73m2 Note: Persistent reduction for 3 months or more in an eGFR <60 mL/min/1.73m2 defines CKD. Patients with eGFR values >=60 mL/min/1.73m2 may also have CKD if evidence of persistent proteinuria is present. Additional information may be found at www.kidney.org/professionals/kdoqi. 56 FASTING 57 Cholesterol Risk Levels (NIH) Recommended: under 200 mg/dl Borderline : 200-239 mg/dl High Risk : Above 240 mg/dl 58 The National Cholesterol Education Program recommends the following ranges for LDL Cholesterol: Optimal under 100 mg/dl Near or above Optimal 100 - 129 mg/dl Borderline High 130 - 159 mg/dl High 160 - 189 mg/dl Very High above 190 mg/dl 59 Triglyceride Risk Levels: Normal : <150 mg/dl Borderline : 150-199 mg/dl High : 200-499 mg/dl Very High : >500 mg/dl 60 LDL/HDL Risk Ratio Levels MALE FEMALE 1/2 X Average 1.00 1.47 Average 3.55 3.22 2 X Average 6.25 5.03 3 X Average 7.99 6.14 61 CHOL/HDL Risk Ratio Levels MALE FEMALE 1/2 X Average 3.4 3.3 Average 5.0 4.4 2 X Average 9.5 7.0 3 X Average 24.0 11.0 62 . Serum PSA results should be used only in conjunction with information available from the clinical evaluation of the patient and other diagnostic procedures. Values obtained with different assay methods or kits cannot be used interchangeably. Results obtained using [employer] ICMA methodology. 63 mL/min/1.73m2 . Normal Function or Mild Renal Disease, if clinically at risk: >or=60 Moderately decreased: 30 - 59 Severely decreased: 15 - 29 Renal Failure: <15 . Please note that the MDRD equation requires an additional adjustment for -Americans (multiply the GFR result by 1.210). . Glomerular Filtration Rate (GFR) is estimated based on the MDRD equation, which assumes a steady state for creatinine (Mana Int Med 139/2 137-149, 2003), as recommended by the National Kidney Disease Education Program in conjunction with the National Institutes of Health and the National Kidney Foundation. . Clinical conditions in which it may be necessary to measure GFR by using clearance methods include extremes of age and body size, severe malnutrition or obesity, diseases of skeletal muscle, paraplegia or quadriplegia, vegetarian diet, rapidly changing kidney function, and calculation of the dose of potentially toxic drugs that are excreted by the kidneys. 64 ---- RUN DATE: 02/05/08 [facility] NM LIVE PAGE 1 RUN TIME: 946 Specimen Inquiry RUN USER: INTERFACE [id number] RAFAEL KRAMER 52/M <REG REF 02/02> ([id number]) LEWIS Kaiser MD,Lonnie Field -- Specimen: [id number] [id number] Spec Date: 02/03/[address]: Lonnie aldridge MD Spec Type: SURGICAL P Received: 02/03/08-1670 Copies to: Sarmad french MD SPECIMEN BIOPSY COLON POLYP AT 40 CM. HISTORY POST-OP DIAGNOSIS: Small polyp CLINICAL INFORMATION: Patient for screening colonoscopy with history of i rritable bowel syndrome and positive family history of colon polyps GROSS DESCRIPTION The specimen is received in formalin labelled Rafael Kramer, Biopsy Colon Polyp at 40 cm., and consists of a paris, soft tissue fragment measuring 0.2 x 0.2 x 0.2 cm. Submitted entirely, one cassette. DIAGNOSIS Colon, 40 cm., biopsy - Retention polyp. Signed Electronically by: ANDREAS JASON MD 02/05/08 0947 -- -- DEPARTMENT OF PATHOLOGY, [address] [place] [address] [facility] Permit #[id number] Andreas Jason M.D. Director of Laboratories -- 65 Anion gap measurement may be of limited value in the presence of any alkalosis, especially in a combined acid base disorder. . 66 FASTING; 1 SST TUBE 67 Cholesterol Risk Levels (NIH) Recommended: under 200 mg/dl Borderline : 200-239 mg/dl High Risk : Above 240 mg/dl . 68 The National Cholesterol Education Program recommends the following ranges for LDL Cholesterol: Optimal under 100 mg/dl Near or above Optimal 100 - 129 mg/dl Borderline High 130 - 159 mg/dl High 160 - 189 mg/dl Very High above 190 mg/dl . 69 Triglyceride Risk Levels: Normal : <150 mg/dl Borderline : 150-199 mg/dl High : 200-499 mg/dl Very High : >500 mg/dl . 70 LDL/HDL Risk Ratio Levels MALE FEMALE 1/2 X Average 1.00 1.47 Average 3.55 3.22 2 X Average 6.25 5.03 3 X Average 7.99 6.14 . 71 CHOL/HDL Risk Ratio Levels MALE FEMALE 1/2 X Average 3.4 3.3 Average 5.0 4.4 2 X Average 9.5 7.0 3 X Average 24.0 11.0 . 72 . Serum PSA results should be used only in conjunction with information available from the clinical evaluation of the patient and other diagnostic procedures. Values obtained with different assay methods or kits cannot be used interchangeably. Results obtained using [employer]aur ICMA methodology. . 73 Triglyceride Risk Levels: Normal : <150 mg/dl Borderline : 150-199 mg/dl High : 200-499 mg/dl Very High : >500 mg/dl . 74 Cholesterol Risk Levels (NIH) Recommended: under 200 mg/dl Borderline : 200-239 mg/dl High Risk : Above 240 mg/dl . 75 CHOL/HDL Risk Ratio Levels MALE FEMALE 1/2 X Average 3.4 3.3 Average 5.0 4.4 2 X Average 9.5 7.0 3 X Average 24.0 11.0 . 76 LDL CHOLESTEROL CANNOT BE CALCULATED DUE TO TRIGLYCERIDES GREATER THAN 400mg/dl. 77 LDL/HDL RISK RATIO CANNOT BE CALCULATED DUE TO TRIGLYCERIDES GREATER THAN 400mg/dl. 78 VLDL CANNOT BE CALCULATED DUE TO TRIGLYCERIDES GREATER THAN 400mg/dl. 79 Triglyceride Risk Levels: Normal : <150 mg/dl Borderline : 150-199 mg/dl High : 200-499 mg/dl Very High : >500 mg/dl . 80 Cholesterol Risk Levels (NIH) Recommended: under 200 mg/dl Borderline : 200-239 mg/dl High Risk : Above 240 mg/dl . 81 The National Cholesterol Education Program recommends the following ranges for LDL Cholesterol: Optimal under 100 mg/dl Near or above Optimal 100 - 129 mg/dl Borderline High 130 - 159 mg/dl High 160 - 189 mg/dl Very High above 190 mg/dl . 82 LDL/HDL Risk Ratio Levels MALE FEMALE 1/2 X Average 1.00 1.47 Average 3.55 3.22 2 X Average 6.25 5.03 3 X Average 7.99 6.14 . 83 CHOL/HDL Risk Ratio Levels MALE FEMALE 1/2 X Average 3.4 3.3 Average 5.0 4.4 2 X Average 9.5 7.0 3 X Average 24.0 11.0 . 84 . Serum PSA results should be used only in conjunction with information available from the clinical evaluation of the patient and other diagnostic procedures. Values obtained with different assay methods or kits cannot be used interchangeably. Results obtained using [employer] ICMA methodology. . 85 . Normal Function or Mild Renal Disease, if clinically at risk: >or=60 Moderately decreased: 30 - 59 Severely decreased: 15 - 29 Renal Failure: <15 . Please note that the MDRD equation requires an additional adjustment for -Americans (multiply the GFR result by 1.210). . Glomerular Filtration Rate (GFR) is estimated based on the MDRD equation, which assumes a steady state for creatinine (Mana Int Med 139/2 137-149, 2003), as recommended by the National Kidney Disease Education Program in conjunction with the National Institutes of Health and the National Kidney Foundation. . Clinical conditions in which it may be necessary to measure GFR by using clearance methods include extremes of age and body size, severe malnutrition or obesity, diseases of skeletal muscle, paraplegia or quadriplegia, vegetarian diet, rapidly changing kidney function, and calculation of the dose of potentially toxic drugs that are excreted by the kidneys. . 86 (Performed by Enzyme Immunoassay, EIA) 87 ANTI-DNA (SS) REFERENCE RANGE NEGATIVE:0-19 BORDERLINE:20-25 POSITIVE:>25 88 CERAMIC COATER MACHINE ANTIBODIES REFERENCE NEGATIVE: 0-99 U/ML EQUIVOCAL: 100-120 U/ML POSITIVE: >120 U/ML 89 NOLEN ANTIBODIES REFERENCE NEGATIVE: 0-99 U/ML EQUIVOCAL: 100-120 U/ML POSITIVE: >120 U/ML Procedures Date CPT Code Description Status 12/30/2012 58732 Pulse Oximetry Completed 07/14/2009 57028 Pulse Oximetry Completed 02/03/2008 Colonoscopy Completed 06/15/2007 56685 Vision Test- screening test of visual acuity, Completed quantitative, bila 03/27/2007 59869 Holter Monitor Completed Encounters Type Date Location Provider CPT E/M Dx Office Visit 02/27/2018 3:10p [facility] Sarmad Ndiaye M.D. 36980 R55 Office Visit 07/23/2017 2:15p [facility] Office Deedee Carreno, 56193 R21 Afnp-C Office Visit 12/05/2016 9:20a [facility] Saramd Ndiaye M.D. 91651 K13.79 Office Visit 09/12/2016 9:00a [facility] Sarmad Ndiaye M.D. 12291 Z00.01 E78.2 E55.9 Z12.11 Z12.5 K58.2 J30.89 Z11.59 Z23 Office Visit 11/23/2015 9:50a [facility] Sarmad Ndiaye M.D. 14257 L03.021 Office Visit 05/29/2015 9:30a [facility] Sarmad Ndiaye M.D. 90661 V70.0 564.1 477.8 722.6 272.4 V76.44 V76.51 268.9 Office Visit 05/21/2015 11:45a Main Office Kori CHRISTINE Ledbetter 49383 789.04 Office Visit 03/08/2015 9:40a [facility] Sarmad Ndiaye M.D. 57792 782.1 Office Visit 03/24/2014 1:45p Main Office Hannonkathy-C 69754 381.00 465.9 477.8 Office Visit 03/13/2014 1:15p Main Office Deepika DentonKATHY 85249 381.00 465.9 Office Visit 01/21/2014 2:20p [facility] Sarmad Ndiaye M.D. 58110 780.79 Office Visit 12/30/2012 11:20a [facility] Sarmad Ndiaye M.D. 13570 780.79 Office Visit 04/11/2012 8:00p [facility] Office Sarmad Ndiaye M.D. 11413 599.70 Office Visit 03/18/2012 4:10p [facility] Sarmad Ndiaye M.D. 62683 719.46 Office Visit 10/27/2011 10:00a [facility] Office Eddie Delong M.D. 21072 528.00 477.8 Office Visit 04/19/2011 2:30p [facility] Sarmad Ndiaye M.D. 80715 782.1 Office Visit 11/22/2010 10:20a [facility] Sarmad Ndiaye M.D. 54622 V70.0 272.2 477.8 715.09 564.1 V76.44 V76.51 346.02 727.05 v04.81 Office Visit 07/16/2010 10:00a Main Office Kamryn MontoyaVIDALP 83738 382.00 Office Visit 08/11/2009 11:40a [facility] Sarmad Ndiaye M.D. 22158 472.1 Office Visit 07/14/2009 11:00a Main Office Cindi AmbrosioYogesh 26351 461.9 Office Visit 07/06/2009 8:10p [facility] Office Eddie Delong M.D. 61023 461.9 465.9 477.8 Office Visit 01/21/2009 4:40p [facility] Office Sarmad Ndiaye M.D. 76711 272.4 Office Visit 12/24/2008 9:00a [facility] Office Sarmad Ndiaye M.D. 55973 V70.0 272.4 715.09 722.6 564.1 477.8 V76.44 V76.51 Office Visit 07/09/2007 4:20p [facility] Office Sarmad Ndiaye M.D. 01583 782.0 Office Visit 06/15/2007 11:45a [facility] Office Sarmad Ndiaye M.D. 08013 361.81 Office Visit 03/19/2007 1:15p [facility] Deedee RodriguezYogesh victor 66556 785.1 Office Visit 02/06/2007 9:30a [facility] Sarmad Ndiaye M.D. 11130 V70.0 272.4 715.09 722.6 564.1 477.8 V76.44 Office Visit 01/28/2007 8:40p [facility] Office Eddie Delong M.D. 32420 564.1 536.8 Office Visit 02/28/2006 10:10a [facility] Sarmad Ndiaye M.D. 43322 272.4 Office Visit 01/31/2006 4:00p [facility] Sarmad Ndiaye M.D. 09267 272.4 477.8 715.09 V76.44 Office Visit 07/13/2005 4:20p [facility] Office Sarmad Ndiaye M.D. 64414 477.8 Office Visit 07/28/2004 1:10p [facility] Office Sarmad Ndiaye M.D. 51269 272.4 Office Visit 06/29/2004 8:00a [facility] Office Sarmad Ndiaye M.D. 94955 715.09 722.6 272.4 477.8 Office Visit 10/08/2003 9:40a [facility] Sarmad Ndiaye M.D. 24656 724.5 Office Visit 11/25/2001 3:00p [facility] Andreas Dale M.D. 53706 Office Visit 01/25/2001 9:00a [facility] Office Andreas Dale M.D. 33256 Office Visit 12/03/2000 2:40p [facility] Andreas Dale M.D. 20470 Plan of Care 10/17/2018 - Aria Miles, NPJ15.9 Unspecified bacterial pneumoniaComments: I'm encouraged that you are feeling pecilmL83.02 HypoxemiaComments:Please follow up at the emergency department to make sure there are no other concerning causes for your low blood oxygenAllComments:1. Patient has been queried about patient's goals/preferences and functional/lifestyle goals at relevant visits. If relevant, describe: Has been discussed, noted above2. Treatment goals as explainedto the patient: see above3. Are there barriers to meeting treatment goals? Yes If Yes, please describe: Barriers include possible insurance limits, disease process, and difficulty with lifestyle changes4. Self-Management goals as described to the patient: Yes, see above As always, we strongly encourage a healthy diet and making physical activity a part of your every day life. If you have questions about how or where to start, please contact the office.
[2018-10-17 15:33] LABS: ABS Basophils 0 10^3/ul (0-0.2); ABS Eosinophils 0 10^3/ul (0-0.6); ABS Lymphocytes 1.5 10^3/ul (1.0-4.8); ABS Monocytes 0.6 10^3/ul (0-0.8); ABS Neutrophils 5.8 10^3/ul (1.5-7.7); ABS Nucleated RBC 0 10^3/ul; Eosinophil % 0.6 %; Hematocrit 42 % (42-52); Hemoglobin 14.7 g/dl (14.0-18.0); Lymphocyte % 18.9 %; Mean Corpuscular HGB Conc 35 g/dl (31-36); Mean Corpuscular Hemoglobin 32 pg (27-31); Mean Corpuscular Volume 92 fL (80-94); Mean Platelet Volume 8.1 fL (7.4-10.4); Nucleated Red Blood Cells % 0.1; Platelet Count 588 10^3/ul (150-450); Red Blood Count 4.57 10^6/ul (4.00-5.40); Red Cell Distribution Width 14 % (10.5-15)
[2018-10-17 15:55] LABS: EGFR Non-African American 89.5 (>60)
[2018-10-17] MEDS ORDERED: Azithromycin IV* 500 MG ADVAN VIAL/BAG IVPB ONE (16:22)
[2018-10-17] MEDS ORDERED: cefTRIAXone(*) 1 GM in NS 0.9% 50 ML* 50 ML IVPB ONE (16:23)
--- NOTE | 2018-10-17 18:23 | CONSULT ---
Subjective Date of Service: 10/17/18 Interval History: This is a 63 year old male being treated as an outpatient for diagnosis of CAP that came to ER to be evaluated for low O2 saturation, potential failure of outpatient treatment. Upon evaluation, patient states he is feeling well, no shortness of breath, no fevers or chills, no chest pain. He is ambulatory and without exercise intolerance. He has received IVF bolus and IV atbx in the ER and is currently feeling well. Review of Systems - Measurements Intake and Output: Intake and Output Last 24 Hours 10/15/18 10/16/18 10/17/18 10/18/18 06:59 06:59 06:59 06:59 Intake Total 1050 Balance 1050 Weight 165 lb Intake: IV Fluids 1050 - Review of Systems Constitutional Symptoms: Negative: Weight Gain, Weight Loss, Weakness, Fatigue, Fever, Night Sweats, Unexplained Falls, Other Dermatology: Negative: Normal, Rash, Skin Lesions, Cancer, Skin Lumps, Other HEENT: Negative: Normal, Change in Hearing, Vertigo, Dental Problems, Tinnitus, Sinus Problem, Other Eyes: Negative: Normal, Change in Vision, Double Vision, Eye Pain, Glaucoma, Cataract, Contacts or Glasses, Other Thyroid: Negative: Normal, Goiter, Thyroid Nodule, Cold Intolerance, Heat Intolerance , Sweatiness, Tremor, Frequent Defecation, Constipation, Palpitations, Primary Hypothyroidism, Primary Hyperthyroidism, Weight Loss, Weight Gain, Change in Skin/Hair, Change in Menstruation, Radiation Exposure, Other Pulmonary: Positive: Cough - productive cough, Sputum, Asthma Negative: Normal, Hemoptysis, Wheezing, Respiratory Distress, Shortness of Breath, COPD, Exercise Intolerance, Home Oxygen, Other Cardiology: Negative: Normal, Chest Pain, Shortness of Breath, Palpitations, Swelling of Ankles, Peripheral Vascular Dis, Edema, Faintness, Syncope, Claudication, Proximal NocturnalDyspnea, Orthopnoea, Other Genital - Urinary: Negative: Normal, Dysuria, Hematuria, Polyuria, Nocturia, Other Genitourinary - Male: Negative: Prostatism, Erectile Dysfunction, Family Hx of Prostate Cancer, Other Musculoskeletal: Negative: Joint Pain, Joint Stiffness, Arthritis, Osteoporosis, Low Back Pain , Sciatica, Joint Deformities, Kyphoscoliosis, Other Endocrinology: Negative: Normal, Thyroid Problems, Adrenal Problems, Gonadal Problems, Family Hx Endocrine Disorders, Obesity, Diabetes Mellitus, Hyperglycemia, Hx Hypoglycemia, Diabetic Foot Ulcers, Calluses, Hirsutism, Menstral Abnormalities , Polydipsia, Polyuria, Gonadal Problems, Gynecomastia, Pituitary disease, Other Hematologic/Lymphatic: Negative: Anemia, Easy Brusing, Hx Leukemia, Hx Lymphoma, Use of Anticoagulant, Use of Antiplatelet Drugs, Other Neurology: Negative: Normal, Headache, Migraines, Change in Vision, Diplopia, Dizziness , Change in Balancing, Change in Coordination, Change in Memory, Change in Speech, Change in Sphincter Function, Change in Walking, Numbness\Paresthesiae, Unexplained Weakness, Hx of Stroke\TIA, Hx of Seizures, Other Psychiatry: Negative: Normal, Depression, Anxiety, Depressed Mood, Adhedonia, Sexual Dysfunction, Weight Change, Guilt Feelings, Tearfulness, Unusual Fatigue, Unusual Anxiety, Suicidal Ideation, Hypomania, Eating Disorders, Other Allergic/Immunologic: Negative: Hx Anaphylaxis, Hx Angioedema, Hx Environmental, Hx Seasonal, Athsma, Hx HIV, Immunocompromise, Swollen Glands LymphNodes, Other Objective Vital Signs - 8 hr 10/17/18 10/17/18 10/17/18 14:36 14:45 15:00 Temperature 98.5 F Pulse Rate 94 98 80 Respiratory 20 16 Rate Blood Pressure 153/91 174/93 (mmHg) O2 Sat by Pulse 89 93 91 Oximetry 10/17/18 10/17/18 10/17/18 15:15 16:01 16:15 Temperature Pulse Rate 87 85 Respiratory 22 14 18 Rate Blood Pressure 178/92 154/95 (mmHg) O2 Sat by Pulse 90 90 Oximetry 10/17/18 10/17/18 10/17/18 16:45 17:00 17:15 Temperature Pulse Rate 80 85 85 Respiratory 21 17 16 Rate Blood Pressure 167/99 166/100 (mmHg) O2 Sat by Pulse 91 93 94 Oximetry Oxygen Devices in Use Now: None - currently 92% on room air Appearance: alert, well appearing, NAD Eyes: No Scleral Icterus, PERRLA Ears/Nose/Mouth/Throat: NL Teeth, Lips, Gums, Mucous Membranes Moist Neck: NL Appearance and Movements; NL JVP, Trachea Midline Respiratory: Symmetrical Chest Expansion and Respiratory Effort, - - mild expiratory wheeze at left base Cardiovascular: NL Sounds; No Murmurs; No JVD, RRR, No Edema Abdominal: NL Sounds; No Tenderness; No Distention Extremities: No Edema, No Clubbing, Cyanosis Skin: No Rash or Ulcers, No Nodules or Sclerosis Neurological: Alert and Oriented x 3, NL Gait, NL Muscle Strength and Tone Nutrition: Taking PO's Result Diagrams: 10/17/18 15:12 10/17/18 15:12 Diagnostic Imaging: Patient Name: HERBERT KRAMER Medical Record#: [id number] Ordering Physician: Rohit Conde MD Acct.#: [id number] : 1955 Age: 63 Sex: M Location: EMERGENCY DEPARTMENT Exam Date: 10/17/181445 ADM Status: REG ER Order Information: CHEST PA & LAT 2 VWS Accession Number: [id number] CPT: 64574 INDICATION: Shortness of breath and hypoxia. COMPARISON: Comparison is made with a prior chest x-ray study from October. TECHNIQUE: Dual-energy PA and lateral views of the chest were obtained. FINDINGS: The heart is within normal limits in size. Mediastinal and hilar contours appear within normal limits. There is mild prominence of the interstitial markings and patchy bilateral infiltrates which appear slightly improved from the prior study. No pleural effusion is seen. IMPRESSION: BILATERAL INFILTRATES SLIGHTLY IMPROVED SUGGESTIVE OF PNEUMONIA. <Electronically signed by Felix Unger MD in OV> 10/17/181614 Dictated By: Felix Unger MD Dictated Date/Time: 10/17/181614 Transcribed Date/Time: 10/17/181612 Copy to: Assessment/Plan - Billing Assessment: 1. CAP: Patient feeling improved after IVF, requesting discharge to home 2. Asthma: Slight exacerbation of asthma in setting of PNA Recommendations: - Patient is hemodynamically stable, no fever, no white count and chest xray shows improvement from 10/13/18, O2 saturation is 92% at present with no SOB - EKG with no acute changes - Recommend continuing course of doxycycline course through completion - Increase Albuterol inhaler AM/PM (BID) and up to Q4h PRN wheeze or SOB for the next week - Increase OTC mucinex to 400mg BID for the next week - Encourage cough, deep breathing/pulmonary toilet and increase oral fluid intake - Make appointment for Dr. Ndiaye to have lungs assessed in 3-5 days Patient is medically stable for discharge to home. Patient told to return to ER if he feels SOB or has increase in temperature. Explained to patient and his significant other that we are agreeable with discharge if patient agrees to close outpatient follow up and the above recommendations. Discussed with Dr. Conde and he is in agreement with discharge. Thank you for the courtesy of this consultation.
[2018-10-17 19:31] VITALS: BP 151/89
== END 2018-10-17 19:30 | disposition home or self-care (01) ==
LOC: ED 14:28
DX: J18.9 Pneumonia, unspecified organism (principal); J45.901 Unspecified asthma with (acute) exacerbation
CPT/HCPCS: 36415; 71046; 80053; 82550; 82553; 83605; 83880; 84484; 85025; 86140; 87040; 93005; 96361; 96374; 96375; 99283; J0456; J0696

== ENCOUNTER 2019-08-31 16:09 | Emergency (ER) | payer MEDICARE, BC ==
--- OUTSIDE RECORDS SUMMARY | 2019-08-31 16:14 | XMS REPORT | Continuity of Care Document ---
:1955 External Reference #:[id number] Author Name Debra Vogel M.D. Address [address] [place] [address] Problems Active Problems Provider Date Moderate persistent asthma Debra Vogel M.D. Onset: 07/30/2019 Abnormal blood test Debra Vogel M.D. Onset: 07/30/2019 Immunization Debra Vogel M.D. Onset: 07/30/2019 Exacerbation of mild persistent asthma Debra Vogel M.D. Onset: 03/12/2019 Mild intermittent asthma Debra Vogel M.D. Onset: 10/23/2018 Allergic rhinitis Debra Vogel M.D. Onset: 10/23/2018 Allergic rhinitis due to pollen Debra Vogel M.D. Onset: 10/23/2018 Pneumonia eDbra Vogel M.D. Onset: 10/23/2018 Social History Type Date Description Comments Sex Unknown ETOH Use Rarely consumes alcohol Tobacco Use Start: Unknown Patient has never smoked Recreational Drug Use Denies Drug Use Allergies, Adverse Reactions, Alerts Active Allergies Reaction Severity Comments Date Gemfibrozil Rash, Tight throat 09/26/2013 Medications Active Medications SIG Qnty Indications Ordering Provider Date Epipen 2-Robel inject for 1units Celinayaya Cullenich, 09/26/2013 allergic CORPORATE LIBRARIAN-C 0.3mg/0.3ML Solution reaction, repeat Auto-Inject in 15 minutes if symptoms persist Claritin Unknown 10mg Capsules Vitamin C Unknown 1000mg Tablets Vitamin E twice a day Unknown 400Unit Capsules Medications Administered in Office Medication SIG Qnty Indications Ordering Provider Date Injection Allergy Injection 02/26/2019 Injection Injection Allergy Injection 02/10/2019 Injection Injection Allergy Injection 01/31/2019 Injection Injection Allergy Injection 01/15/2019 Injection Injection Allergy Injection 01/01/2019 Injection Injection Allergy Injection 12/18/2018 Injection Injection Allergy Injection 12/09/2018 Injection Injection Allergy Injection 11/22/2018 Injection Injection Allergy Injection 11/13/2018 Injection Injection Allergy Injection 09/16/2018 Injection Injection Allergy Injection 08/28/2018 Injection Injection Allergy Injection 08/14/2018 Injection Injection Allergy Injection 07/31/2018 Injection Injection Allergy Injection 07/10/2018 Injection Injection Allergy Injection 06/24/2018 Injection Injection Allergy Injection 06/10/2018 Injection Injection Allergy Injection 05/30/2018 Injection Injection Allergy Injection 05/09/2018 Injection Injection Allergy Injection 04/22/2018 Injection Injection Allergy Injection 04/05/2018 Injection Injection Allergy Injection 03/22/2018 Injection Injection Allergy Injection 03/08/2018 Injection Injection Allergy Injection 02/22/2018 Injection Injection Allergy Injection 02/08/2018 Injection Injection Allergy Injection 01/21/2018 Injection Injection Allergy Injection 01/16/2018 Injection Injection Allergy Injection 01/07/2018 Injection Injection Allergy Injection 11/19/2017 Injection Injection Allergy Injection 11/12/2017 Injection Injection Allergy Injection 10/04/2017 Injection Injection Allergy Injection 09/05/2017 Injection Injection Allergy Injection 08/22/2017 Injection Injection Allergy Injection 08/08/2017 Injection Injection Allergy Injection 07/25/2017 Injection Injection Allergy Injection 07/04/2017 Injection Injection Allergy Injection 06/20/2017 Injection Injection Allergy Injection 06/04/2017 Injection Injection Allergy Injection 05/21/2017 Injection Injection Allergy Injection 04/30/2017 Injection Injection Bashir Avina M.D. 04/16/2017 Injection Injection Allergy Injection 04/16/2017 Injection Injection Allergy Injection 03/30/2017 Injection Injection Allergy Injection 03/19/2017 Injection Injection Allergy Injection 03/05/2017 Injection Injection Allergy Injection 02/19/2017 Injection Injection Allergy Injection 01/26/2017 Injection Injection Allergy Injection 01/12/2017 Injection Injection Allergy Injection 12/29/2016 Injection Injection Allergy Injection 12/13/2016 Injection Injection Allergy Injection 11/29/2016 Injection Injection Allergy Injection 11/22/2016 Injection Injection Allergy Injection 11/01/2016 Injection Injection Allergy Injection 10/25/2016 Injection Injection Allergy Injection 10/16/2016 Injection Injection Allergy Injection 10/09/2016 Injection Injection Allergy Injection 10/02/2016 Injection Injection Allergy Injection 09/15/2016 Injection Injection Allergy Injection 09/04/2016 Injection Injection Allergy Injection 07/28/2016 Injection Injection Allergy Injection 07/14/2016 Injection Injection Allergy Injection 06/30/2016 Injection Injection Allergy Injection 06/16/2016 Injection Injection Allergy Injection 06/01/2016 Injection Injection Allergy Injection 05/11/2016 Injection Injection Bashir Avina M.D. 04/26/2016 Injection Injection Allergy Injection 04/26/2016 Injection Injection Allergy Injection 04/19/2016 Injection Injection Allergy Injection 04/12/2016 Injection Injection Allergy Injection 03/29/2016 Injection Injection Allergy Injection 03/22/2016 Injection Injection Allergy Injection 03/15/2016 Injection Injection Allergy Injection 03/01/2016 Injection Injection Allergy Injection 02/21/2016 Injection Injection Allergy Injection 02/04/2016 Injection Injection Allergy Injection 01/14/2016 Injection Injection Allergy Injection 01/07/2016 Injection Injection Allergy Injection 12/24/2015 Injection Injection Allergy Injection 12/17/2015 Injection Injection Allergy Injection 12/10/2015 Injection Injection Allergy Injection 11/29/2015 Injection Injection Allergy Injection 11/15/2015 Injection Injection Allergy Injection 11/10/2015 Injection Injection Allergy Injection 09/24/2015 Injection Injection Allergy Injection 09/06/2015 Injection Injection Allergy Injection 08/13/2015 Injection Injection Allergy Injection 07/30/2015 Injection Injection Allergy Injection 07/09/2015 Injection Injection Allergy Injection 06/14/2015 Injection Injection Allergy Injection 05/31/2015 Injection Injection Allergy Injection 05/03/2015 Injection Injection Allergy Injection 04/19/2015 Injection Injection Allergy Injection 04/05/2015 Injection Injection Allergy Injection 03/22/2015 Injection Injection Allergy Injection 03/08/2015 Injection Injection Allergy Injection 02/24/2015 Injection Injection Allergy Injection 02/10/2015 Injection Injection Allergy Injection 01/29/2015 Injection Injection Allergy Injection 01/18/2015 Injection Injection Allergy Injection 01/04/2015 Injection Injection Allergy Injection 11/30/2014 Injection Injection Allergy Injection 11/02/2014 Injection Injection Allergy Injection 10/05/2014 Injection Injection Allergy Injection 09/07/2014 Injection Injection Allergy Injection 08/24/2014 Injection Injection Allergy Injection 08/10/2014 Injection Injection Allergy Injection 07/27/2014 Injection Injection Allergy Injection 07/13/2014 Injection Injection Allergy Injection 06/26/2014 Injection Injection Allergy Injection 06/08/2014 Injection Injection Allergy Injection 05/25/2014 Injection Injection Allergy Injection 05/11/2014 Injection Injection Allergy Injection 04/27/2014 Injection Injection Allergy Injection 04/08/2014 Injection Injection Allergy Injection 03/25/2014 Injection Injection Allergy Injection 03/11/2014 Injection Injection Allergy Injection 02/25/2014 Injection Injection Allergy Injection 02/16/2014 Injection Injection Allergy Injection 02/09/2014 Injection Injection Allergy Injection 01/30/2014 Injection Injection Allergy Injection 01/07/2014 Injection Injection Allergy Injection 12/22/2013 Injection Injection Allergy Injection 12/08/2013 Injection Injection Allergy Injection 11/10/2013 Injection Injection Allergy Injection 09/26/2013 Injection Injection Allergy Injection 09/01/2013 Injection Injection Allergy Injection 08/06/2013 Injection Injection Allergy Injection 07/23/2013 Injection Injection Allergy Injection 07/11/2013 Injection Injection Allergy Injection 06/23/2013 Injection Injection Allergy Injection 06/11/2013 Injection Injection Allergy Injection 05/23/2013 Injection Injection Allergy Injection 04/25/2013 Injection Injection Allergy Injection 04/11/2013 Injection Injection Allergy Injection 04/02/2013 Injection Injection Allergy Injection 03/21/2013 Injection Injection Allergy Injection 03/05/2013 Injection Injection Allergy Injection 02/19/2013 Injection Injection Allergy Injection 02/05/2013 Injection Injection Emeka Mahendra Schumacher 01/17/2013 Injection Injection Emeka Mahendra Schumacher 12/02/2012 Injection Injection Emeka Mahendra Schumacher 11/08/2012 Injection Injection Emeka Mahendra Schumacher 10/21/2012 Injection Injection Emeka Mahendra Schumacher 09/30/2012 Injection Injection Emeka Mahendra Schumacher 08/28/2012 Injection Injection Emeka Mahendra Schumacher 07/31/2012 Injection Injection Emeka Mahendra Schumacher 07/17/2012 Injection Injection Emeka WinsomeMahendra leroy 07/01/2012 Injection Injection Emeka Mahendra Schumacher 06/17/2012 Injection Injection Emeka Mahendra Schumacher 06/03/2012 Injection Injection Emeka Mahendra Schumacher 05/27/2012 Injection Injection Emeka Mahendra Schumacher 05/24/2012 Injection Injection Emeka Mahendra Schumacher 05/17/2012 Injection Injection Emeka Mahendra Schumacher 05/01/2012 Injection Injection Emeka Winsome, M.D. 04/19/2012 Injection Injection Emeka Winsome, M.D. 03/08/2012 Injection Injection Emeka Winsome, M.D. 02/21/2012 Injection Injection Emeka Winsome, M.D. 01/22/2012 Injection Injection Emeka Winsome, M.DCharles 01/03/2012 Injection Injection Emeka Winsome, M.DCharles 12/20/2011 Injection Injection Emeka Winsome, M.DCharles 12/04/2011 Injection Injection Emeka Winsome, M.D. 11/20/2011 Injection Injection Emeka Winsome, M.DCharles 10/06/2011 Injection Injection Emeka Winsome, M.DCharles 09/08/2011 Injection Injection Emeka Winsome, M.DCharles 08/21/2011 Injection Injection Emeka Winsome, M.DCharles 07/24/2011 Injection Injection Emeka Winsome, M.DCharles 07/05/2011 Injection Injection Emeka Winsome, M.DCharles 06/12/2011 Injection Injection Emeka Winsome, M.D. 05/29/2011 Injection Injection Emeka Winsome, M.DCharles 05/03/2011 Injection Injection Emeka Winsome, M.DCharles 04/14/2011 Injection Injection Emeka Winsome, M.DCharles 03/27/2011 Injection Injection Emeka Winsome, M.D. 03/10/2011 Injection Injection Emeka Winsome, M.D. 02/22/2011 Injection Injection Emeka Winsome, M.DCharles 02/06/2011 Injection Injection Emeka Winsome, M.DCharles 01/20/2011 Injection Injection Emeka Winsome, M.D. 01/06/2011 Injection Injection Emeka Winsome, M.D. 12/21/2010 Injection Injection Emeka Winsome, M.DCharles 12/09/2010 Injection Injection Emeka Winsome, M.D. 11/11/2010 Injection Injection Emeka Winsome, M.D. 10/14/2010 Injection Injection Emeka Winsome, M.D. 09/09/2010 Injection Injection Emeka Winsome, M.DCharles 08/15/2010 Injection Injection Emeka Winsome, M.D. 08/01/2010 Injection Injection Emeka Winsome, M.DCharles 06/22/2010 Injection Injection Meeka Winsome, M.D. 06/08/2010 Injection Injection Emeka Winsome, M.D. 05/25/2010 Injection Injection Emeka Winsome, M.D. 05/04/2010 Injection Injection Emeka Winsome, M.DCharles 04/20/2010 Injection Injection Emeka Winsome, M.DCharles 04/06/2010 Injection Injection Emeka Winsome, M.DCharles 03/21/2010 Injection Injection Emeka Winsome, M.DCharles 02/28/2010 Injection Injection Emeka Winsome, M.DCharles 02/14/2010 Injection Injection Emeka Winsome, M.DCharles 01/31/2010 Injection Injection Emeka Winsome, M.DCharles 01/17/2010 Injection Injection Emeka Winsome, M.DCharles 01/03/2010 Injection Injection Emeka Winsome, M.DCharles 11/19/2009 Injection Injection Emeka Winsome, M.DCharles 10/22/2009 Injection Injection Emeka Winsome, M.DCharles 09/24/2009 Injection Injection Emeka Winsome, M.D. 08/18/2009 Injection Injection Emeka Winsome, M.DCharles 08/04/2009 Injection Injection Emeka Winsome, M.DCharles 07/21/2009 Injection Injection Emeka Winsome, M.DCharles 06/25/2009 Injection Injection Emeka Winsome, M.DCharles 06/11/2009 Injection Injection Emeka Winsome, M.DCharles 05/26/2009 Injection Injection Emeka Winsome, M.D. 05/12/2009 Injection Injection Emeka Winsome, M.DCharles 04/19/2009 Injection Injection Emeka Winsome, M.DCharles 03/31/2009 Injection Injection Emeka Winsome, M.DCharles 03/17/2009 Injection Injection Emeka Winsome, M.DCharles 03/03/2009 Injection Injection Emeka Winsome, M.DCharles 02/17/2009 Injection Injection Emeka Winsome, M.DCharles 01/27/2009 Injection Injection Emeka Winsome, M.DCharles 01/11/2009 Injection Injection Emeka Winsome, M.DCharles 12/25/2008 Injection Injection Emeka Winsome, Adalgisa.DCharles 12/14/2008 Injection Injection Emeka Winsome, M.DCharles 11/02/2008 Injection Injection Emeka Winsome, M.DCharles 09/25/2008 Injection Injection Emeka Winsome, Adalgisa.DCharles 08/24/2008 Injection Injection Emeka Winsome, Adalgisa.DCharles 07/17/2008 Injection Injection Emeka Winsome, VioletDCharles 06/19/2008 Injection Injection Emeka Winsome, VioletDCharles 05/25/2008 Injection Injection Emeka Winsome, Adalgisa.DCharles 04/27/2008 Injection Injection Emeka Winsome, Mahendra 03/27/2008 Injection Injection Emeka Winsome, Mahendra 02/28/2008 Injection Injection Emeka Winsome, VioletDCharles 02/14/2008 Injection Injection Emeka Winsome, VioletDCharles 01/31/2008 Injection Injection Emeka Winsome, Mahendra 01/17/2008 Injection Injection Emeka Winsome, VioletDCharles 12/20/2007 Injection Injection Emeka Winsome, VioletDCharles 12/09/2007 Injection Injection Emeka Winsome, Mahendra 11/01/2007 Injection Injection Emeka Winsome, Mahendra 10/04/2007 Injection Injection Emeka Winsome, Mahendra 09/20/2007 Injection Injection Emeka Winsome, VioletDCharles 09/11/2007 Injection Injection Emeka Winsome, Mahendra 08/26/2007 Injection Injection Emeka Winsome, Mahendra 08/05/2007 Injection Injection Emeka Winsome, M.DCharles 07/22/2007 Injection Injection Emeka Winsome, MCharlesDCharles 07/03/2007 Injection Injection Emeka Winosme, Mahendra 06/14/2007 Injection Injection Emeka Winsome, VioletDCharles 05/31/2007 Injection Injection Emeka Winsome, M.DCharles 05/17/2007 Injection Injection Emeka Winsome, MCharlesDCharles 05/03/2007 Injection Injection Emeka Winsome, Mahendra 04/19/2007 Injection Injection Emeka Winsome, M.D. 04/05/2007 Injection Injection Emeka Winsome, M.D. 03/22/2007 Injection Injection Emeka Winsome, M.DCharles 03/08/2007 Injection Injection Emeka Winsome, M.DCharles 02/22/2007 Injection Injection Emeka Winsome, M.DCharles 02/06/2007 Injection Injection Emeka Winsome, M.D. 01/23/2007 Injection Injection Emeka Winsome, M.DCharles 12/21/2006 Injection Injection Emeka Winsome, M.DCharles 12/07/2006 Injection Injection Emeka Winsome, M.DCharles 11/23/2006 Injection Injection Emeka Winsome, M.DCharles 11/09/2006 Injection Injection Emeka Winsome, M.DCharles 10/26/2006 Injection Injection Emeka Winsome, M.DCharles 10/12/2006 Injection Injection Emeka Winsome, M.D. 10/01/2006 Injection Injection Emeka Winsome, M.DCharles 09/14/2006 Injection Injection Emeka Winsome, M.DCharles 09/07/2006 Injection Injection Emeka Winsome, M.DCharles 08/31/2006 Injection Injection Emeka Winsome, M.DCharles 08/27/2006 Injection Injection Emeka Winsome, M.DCharles 08/17/2006 Injection Injection Emeka Winsome, M.D. 08/10/2006 Injection Injection Emeka Winsome, M.D. 08/03/2006 Injection Injection Emeka Winsome, M.DCharles 07/27/2006 Injection Injection Emeka Winsome, M.DCharles 07/20/2006 Injection Injection Emeka Winsome, M.DCharles 07/13/2006 Injection Injection Emeka Winsome, M.DCharles 07/06/2006 Injection Injection Emeka Winsome, M.DCharles 06/29/2006 Injection Injection Emeka Winsome, M.DCharles 06/20/2006 Injection Injection Emeka Winsome, M.DCharles 06/13/2006 Injection Injection Emeka Winsome, M.DCharles 06/08/2006 Injection Injection Emeka Winsome, M.DCharles 06/01/2006 Injection Injection Emeka Winsome, M.DCharles 05/23/2006 Injection Injection Emeka Winsome, M.D. 05/16/2006 Injection Injection Emeka Schumacher M.D. 05/09/2006 Injection Injection Emeka Schumacher M.D. 2006 Injection Injection Emeka Schumacher M.D. 04/25/2006 Injection Injection Emeka Schumacher M.D. 04/18/2006 Injection Injection Emeka Schumacher M.D. 04/11/2006 Injection Injection Emeka Schumacher M.D. 04/04/2006 Injection Injection Emeka Schumacher M.D. 03/21/2006 Injection Injection Emeka Schumacher M.D. 03/14/2006 Injection Immunizations CPT Code Status Date Vaccine Lot # 12410 Given Unknown Influenza Vaccine 64396 Given Unknown Influenza Vaccine 05754 Given Unknown Pneumococcal Conjugate Vaccine 13 Valent For Intramuscular Use Vital Signs Date Vital Result Comment 07/30/2019 11:38am Height 71 inches 5'11" Weight 184.00 lb Weight 83.462 kg Respiratory Rate 18 /min Heart Rate 86 /min O2 % BldC Oximetry 98 % BP Systolic 165 mmHg BP Diastolic 83 mmHg Asthma Control Test 23 BMI (Body Mass Index) 25.7 kg/m2 03/18/2019 2:36pm Height 71 inches 5'11" Weight 178.00 lb Weight 80.741 kg Respiratory Rate 16 /min Heart Rate 83 /min O2 % BldC Oximetry 98 % BP Systolic 160 mmHg BP Diastolic 103 mmHg Asthma Control Test 21 Fractional Exhaled Nitric Oxide 79 BMI (Body Mass Index) 24.8 kg/m2 Results Description No Information Available Procedures Date Code Description Status 03/18/2019 60664 Nitric Oxide Gas Determination Completed 03/18/2019 00549 Pre PFT Completed 03/12/2019 34392 Nitric Oxide Gas Determination Completed 03/12/2019 25697 Pre PFT Completed 02/26/2019 09817 Injection Completed 02/10/2019 05559 Injection Completed 01/31/2019 43506 Injection Completed 01/31/2019 50947 Nitric Oxide Gas Determination Completed 01/31/2019 86937 Pre PFT Completed Medical Devices Description No Information Available Encounters Type Date Location Provider Dx Diagnosis Office Visit 03/18/2019 [facility] Cecilia Ramos45.31 Mild persistent 3:00p CORPORATE LIBRARIAN-C asthma with (acute) exacerbation J30.1 Allergic rhinitis due to pollen J30.2 Other seasonal allergic rhinitis J30.89 Other allergic rhinitis J30.81 Allergic rhinitis due to animal (cat) (dog) hair and dander Office Visit 03/12/2019 3:20p [place] Debra Vogel, J45.31 Mild persistent asthma M.D. with (acute) exacerbation J30.1 Allergic rhinitis due to pollen J30.2 Other seasonal allergic rhinitis J30.89 Other allergic rhinitis Office Visit 01/31/2019 1:20p Brit Godfrey, J45.20 Mild intermittent CORPORATE LIBRARIAN-C asthma, uncomplicated J30.89 Other allergic rhinitis J30.81 Allergic rhinitis due to animal (cat) (dog) hair and dander J30.2 Other seasonal allergic rhinitis J30.1 Allergic rhinitis due to pollen Assessments Date Code Description Provider 07/30/2019 R76.8 Abnormal blood test Debra Vogel M.D. 07/30/2019 J45.40 Moderate persistent asthma Debra Vogel M.D. 07/30/2019 J30.2 Allergic rhinitis Debra Vogel M.D. 07/30/2019 J30.1 Allergic rhinitis due to pollen Debra Vogel M.D. 07/30/2019 Z23 Encounter for immunization Debra Vogel M.D. 03/18/2019 J45.31 Mild persistent asthma with (acute) Bashir Avina M.D. exacerbation 03/18/2019 J45.31 Mild persistent asthma with (acute) Celinarama Godfrey, CORPORATE LIBRARIAN-C exacerbation 03/18/2019 J30.1 Allergic rhinitis due to pollen Bashir Avina M.D. 03/18/2019 J30.1 Allergic rhinitis due to pollen CelinaVIDAL ParisiP-C 03/18/2019 J30.2 Other seasonal allergic rhinitis Bashir Avnia M.D. 03/18/2019 J30.2 Other seasonal allergic rhinitis Celinarama Godfrey CORPORATE LIBRARIAN-C 03/18/2019 J30.89 Other allergic rhinitis Bashir Avina M.D. 03/18/2019 J30.89 Other allergic rhinitis CHRISTINE Ramos-Aleks 03/18/2019 J30.81 Allergic rhinitis due to animal (cat) CHRISTINE Ramos (dog) hair and dander 03/12/2019 J45.31 Mild persistent asthma with (acute) Debra Vogel M.D. exacerbation 03/12/2019 J30.1 Allergic rhinitis due to pollen Debra Vogel M.D. 03/12/2019 J30.2 Other seasonal allergic rhinitis Debra Vogel M.D. 03/12/2019 J30.89 Other allergic rhinitis Debra Vogel M.D. 02/26/2019 J30.1 Allergic rhinitis due to pollen Bashir Avina M.D. 02/26/2019 J30.1 Allergic rhinitis due to pollen Allergy Injection 02/26/2019 J30.2 Other seasonal allergic rhinitis Bashir Avina M.D. 02/26/2019 J30.2 Other seasonal allergic rhinitis Allergy Injection 02/26/2019 J30.81 Allergic rhinitis due to animal (cat) Bashir Avina M.D. (dog) hair and dander 02/26/2019 J30.81 Allergic rhinitis due to animal (cat) Allergy Injection (dog) hair and dander 02/26/2019 J30.89 Other allergic rhinitis Bashir Avina M.D. 02/26/2019 J30.89 Other allergic rhinitis Allergy Injection 02/10/2019 J30.1 Allergic rhinitis due to pollen Bashir Avina M.D. 02/10/2019 J30.1 Allergic rhinitis due to pollen Allergy Injection 02/10/2019 J30.2 Other seasonal allergic rhinitis Bashir Avina M.D. 02/10/2019 J30.2 Other seasonal allergic rhinitis Allergy Injection 02/10/2019 J30.81 Allergic rhinitis due to animal (cat) Bashir Avina M.D. (dog) hair and dander 02/10/2019 J30.81 Allergic rhinitis due to animal (cat) Allergy Injection (dog) hair and dander 02/10/2019 J30.89 Other allergic rhinitis Bashir Avina M.D. 02/10/2019 J30.89 Other allergic rhinitis Allergy Injection 01/31/2019 J45.20 Mild intermittent asthma, uncomplicated Bashir Avina M.D. 01/31/2019 J30.1 Allergic rhinitis due to pollen Bashir Avina M.D. 01/31/2019 J30.89 Other allergic rhinitis Bashir Avina M.D. 01/31/2019 J45.20 Mild intermittent asthma, uncomplicated Celina Uldrich, CORPORATE LIBRARIAN-C 01/31/2019 J30.81 Allergic rhinitis due to animal (cat) Bashir Avina M.D. (dog) hair and dander 01/31/2019 J30.2 Other seasonal allergic rhinitis Bashir Avina M.D. 01/31/2019 J30.2 Other seasonal allergic rhinitis Bashir Avina M.D. 01/31/2019 J30.89 Other allergic rhinitis Celina Uldrich, CORPORATE LIBRARIAN-C 01/31/2019 J30.81 Allergic rhinitis due to animal (cat) Bashir Avina M.D. (dog) hair and dander 01/31/2019 J30.81 Allergic rhinitis due to animal (cat) Celina Uldrich, CORPORATE LIBRARIAN -C (dog) hair and dander 01/31/2019 J30.89 Other allergic rhinitis Bashir Avina M.D. 01/31/2019 J30.2 Other seasonal allergic rhinitis Celina Uldrich, CORPORATE LIBRARIAN-C 01/31/2019 J30.1 Allergic rhinitis due to pollen Celina Uldrich, CORPORATE LIBRARIAN-C 01/31/2019 J30.1 Allergic rhinitis due to pollen Allergy Injection 01/31/2019 J30.2 Other seasonal allergic rhinitis Allergy Injection 01/31/2019 J30.81 Allergic rhinitis due to animal (cat) Allergy Injection (dog) hair and dander 01/31/2019 J30.89 Other allergic rhinitis Allergy Injection Plan of Treatment No Information Available Functional Status Description No Information Available Mental Status Description No Information Available Referrals Description No Information Available
[2019-08-31 16:27] VITALS: BP 158/101
--- NOTE | 2019-08-31 16:35 | UC ---
Skin Complaint HPI - HPI Summary HPI Summary: patient found tick walking on L forearm. states it was on him no more than 2 hours and was not embedded - History of Current Complaint Chief Complaint: UCSkin Time Seen by Provider: 08/31/19 16:17 Stated Complaint: TICK Hx Obtained From: Patient Pain Intensity: 0 Aggravating Factor(s): Nothing Alleviating Factor(s): Nothing Associated Signs & Symptoms: Positive: Negative - Allergy/Home Medications Allergies/Adverse Reactions: Allergies Allergy/AdvReac Type Severity Reaction Status Date / Time fenofibrate Allergy Hives Verified 08/31/19 16:28 environmental Allergy Mild Congestion Uncoded 08/31/19 16:28 PMH/Surg Hx/FS Hx/Imm Hx Previously Healthy: Yes Respiratory History: Asthma - Surgical History Surgical History: None - Family History Known Family History: Positive: Hypertension, Other - HLD Family History: Dyslipidemia - Social History Occupation: Employed Full-time Lives: With Family Alcohol Use: Weekly Substance Use Type: None Smoking Status (MU): Never Smoked Tobacco Have You Smoked in the Last Year: No Review of Systems All Other Systems Reviewed And Are Negative: Yes Constitutional: Positive: Negative Skin: Positive: Negative, Other - no puncture wound. Negative: Rash Respiratory: Positive: Negative Cardiovascular: Positive: Negative Neurological: Positive: Negative Psychological: Positive: Negative Is Patient Immunocompromised?: No Physical Exam Triage Information Reviewed: Yes Appearance: Well-Appearing, No Pain Distress, Well-Nourished Vital Signs: Initial Vital Signs Temp 100.4 F 08/31/19 16:20 Pulse 100 08/31/19 16:20 Resp 16 08/31/19 16:20 BP 158/101 08/31/19 16:20 Pulse Ox 95 08/31/19 16:20 Vital Signs Reviewed: Yes Respiratory Exam: Normal Respiratory: Positive: Lungs clear Cardiovascular Exam: Normal Cardiovascular: Positive: RRR Neurological Exam: Normal Psychological Exam: Normal Skin Exam: Normal - no evidenc tick bite on L arm Course/Dx - Differential Diagnoses - Skin Complaint Differential Diagnoses: Foreign Body, Tick Born Illness - Diagnoses Provider Diagnosis: Normal exam Discharge ED - Sign-Out/Discharge Documenting (check all that apply): Patient Departure All imaging exams completed and their final reports reviewed: No Studies - Discharge Plan Condition: Good Disposition: HOME Patient Education Materials: Lyme Disease (ED) Referrals: Sarmad Ndiaye MD [Primary Care Provider] - Additional Instructions: monitor for symptoms of Lyme disease (included in this packet) report symptoms - Billing Disposition and Condition Condition: GOOD Disposition: Home - Attestation Statements Provider Attestation: Per institutional requirements, I have reviewed the chart, however, I was not consulted specifically or made aware of this patient by the midlevel provider. I did not personally evaluate, interact with , or disposition this patient.
== END 2019-08-31 16:40 | disposition home or self-care (01) ==
LOC: UCEAST 16:09
DX: Z03.89 Encounter for observation for other suspected diseases and conditions ruled out (principal); J45.909 Unspecified asthma, uncomplicated; Z88.8 Allergy status to other drugs, medicaments and biological substances; Z91.09 Other allergy status, other than to drugs and biological substances
CPT/HCPCS: 99211; G0463

== ENCOUNTER 2019-10-30 22:21 | Emergency (ER) | payer MEDICARE, BC ==
--- NOTE | 2019-10-30 22:48 | ED ---
Skin Complaint - HPI Summary HPI Summary: Patient complains of rash and skin irritation to right side groin and scrotum 1 hour. States history of yeast infections. Denies fever, cough, sore throat, CP, SOB, N/C/D, abdominal pain, change in urine, change in BM, penile symptoms, testicular pain or swelling. Medical history is sensitive skin, asthma, allergies, recurrent yeast infections. - History of Current Complaint Chief Complaint: EDRashSkinAbscess Time Seen by Provider: 10/30/19 22:45 Stated Complaint: RASH ON GROIN AREA PER PT Hx Obtained From: Patient Onset/Duration: Started Hours Ago Skin Exposure Onset/Duration: Hours Ago Timing: Constant Current Severity: None Pain Intensity: 0 Pain Scale Used: 0-10 Numeric Skin Location: Discrete Aggravating Symptom(s): Touch Alleviating Symptom(s): Nothing Associated Signs & Symptoms: Negative - Additional Pertinent History Primary Care Physician: AL - Allergy/Home Medications Allergies/Adverse Reactions: Allergies Allergy/AdvReac Type Severity Reaction Status Date / Time fenofibrate Allergy Hives Verified 10/30/19 22:25 environmental Allergy Mild Congestion Uncoded 10/30/19 22:25 PMH/Surg Hx/FS Hx/Imm Hx Endocrine/Hematology History: Denies: Hx Diabetes, Hx Thyroid Disease Cardiovascular History: Reports: Hx Hypercholesterolemia, Other Cardiovascular Problems/Disorders - PVCs Denies: Hx Hypertension, Hx Peripheral Vascular Disease Respiratory History: Reports: Hx Asthma Denies: Hx Chronic Obstructive Pulmonary Disease (COPD) GI History: Denies: Hx Ulcer History: Denies: Hx Renal Disease Musculoskeletal History: Reports: Hx Arthritis, Other Musculoskeletal History - spinal stenosis Denies: Hx Osteoporosis Sensory History: Reports: Hx Contacts or Glasses Denies: Hx Cataracts, Hx Glaucoma, Hx Hearing Aid Opthamlomology History: Reports: Hx Contacts or Glasses Denies: Hx Cataracts, Hx Glaucoma EENT History: Denies: Hx Deafness Neurological History: Reports: Hx Migraine Denies: Hx Headaches, Hx Seizures, Hx Transient Ischemic Attacks (TIA) Psychiatric History: Denies: Hx Anxiety, Hx Depression Infectious Disease History: No Infectious Disease History: Reports: History 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 Denies: Hx Clostridium Difficile, Hx Hepatitis, Hx Human Immunodeficiency Virus (HIV), Hx of Known/Suspected MRSA, Hx Shingles, Hx Tuberculosis, Traveled Outside the [place] in Last 30 Days - Family History Known Family History: Positive: Hypertension, Other - HLD Family History: Dyslipidemia - Social History Alcohol Use: Weekly Substance Use Type: Reports: None Smoking Status (MU): Never Smoked Tobacco Have You Smoked in the Last Year: No Review of Systems Constitutional: Negative Eyes: Negative ENT: Negative Cardiovascular: Negative Respiratory: Negative Gastrointestinal: Negative Genitourinary: Negative Musculoskeletal: Negative Positive: Rash Neurological: Negative Psychological: Normal All Other Systems Reviewed And Are Negative: Yes Physical Exam - Summary Physical Exam Summary: Irritation and erythema to right inguinal crease. Mild redness of right-sided scrotum. No pain with palpation of testicles. Genital exam otherwise unremarkable. Triage Information Reviewed: Yes Vital Signs On Initial Exam: Initial Vitals Temp Pulse Resp BP Pulse Ox 97.6 F 96 16 170/101 98 10/30/19 22:23 10/30/19 22:23 10/30/19 22:23 10/30/19 22:23 10/30/19 22:23 Vital Signs Reviewed: Yes Appearance: Positive: Well-Appearing Skin: Positive: Warm Head/Face: Positive: Normal Head/Face Inspection Eyes: Positive: Normal Neck: Positive: Supple Respiratory/Lung Sounds: Positive: Clear to Auscultation Cardiovascular: Positive: Normal Abdomen Description: Positive: Nontender Male Genital Exam: Positive: Normal Genitalia, Other Musculoskeletal: Positive: Normal Neurological: Positive: Normal Psychiatric: Positive: Normal AVPU Assessment: Alert - Tyson Coma Scale Best Eye Response: 4 - Spontaneous Best Motor Response: 6 - Obeys Commands Best Verbal Response: 5 - Oriented Coma Scale Total: 15 Procedures - Sedation Patient Received Moderate/Deep Sedation with Procedure: No Diagnostics - Vital Signs Vital Signs Temp Pulse Resp BP Pulse Ox 10/30/19 22:23 97.6 F 96 16 170/101 98 - Laboratory Lab Statement: Any lab studies that have been ordered have been reviewed, and results considered in the medical decision making process. Course/Dx - Course Course Of Treatment: Patient complains of rash and skin irritation to right side groin and scrotum 1 hour. States history of yeast infections. Denies fever, cough, sore throat, CP, SOB, N/C/D, abdominal pain, change in urine, change in BM, penile symptoms, testicular pain or swelling. Medical history is sensitive skin, asthma, allergies, recurrent yeast infections. Vital signs within normal limits. Nystatin ointment provided. - Diagnoses Provider Diagnoses: Skin yeast infection Discharge ED - Sign-Out/Discharge Documenting (check all that apply): Patient Departure - Discharge Plan Condition: Stable Disposition: HOME Patient Education Materials: Skin Yeast Infection (ED) Referrals: Sarmad Ndiaye MD [Primary Care Provider] - Additional Instructions: Applying nystatin ointment to affected area 3 times a day for 2 weeks. Keep area clean and dry when not washing. Follow-up with primary care. Return to the ED for any new or worsening symptoms. - Billing Disposition and Condition Condition: STABLE Disposition: Home - Attestation Statements Provider Attestation: I was available for consult. This patient was seen by the TAMMY. The patient was not presented to, seen by, or examined by me. Shyam Brandon MD
[2019-10-30] MEDS ORDERED: Nystatin OINT* 15 GM TOPICAL SCH (23:00)
[2019-10-30 23:27] VITALS: BP 148/95
== END 2019-10-30 23:27 | disposition home or self-care (01) ==
LOC: ED 22:21
DX: B37.2 Candidiasis of skin and nail (principal); E78.00 Pure hypercholesterolemia, unspecified; J45.909 Unspecified asthma, uncomplicated; Z88.8 Allergy status to other drugs, medicaments and biological substances
CPT/HCPCS: 99282; A9270-GY

== ENCOUNTER 2019-12-26 09:42 | Emergency (ER) | payer MEDICARE, BC ==
[2019-12-26 10:21] LABS: ABS Eosinophils 0.1 10^3/ul (0-0.6); ABS Lymphocytes 1.4 10^3/ul (1.0-4.8); ABS Monocytes 0.5 10^3/ul (0-0.8); ABS Neutrophils 4.8 10^3/ul (1.5-7.7); Hematocrit 44 % (42-52); Hemoglobin 15.3 g/dL (14.0-18.0); Mean Corpuscular HGB Conc 35 g/dL (31-36); Mean Corpuscular Hemoglobin 31 pg (27-31); Mean Corpuscular Volume 89 fL (80-94); Mean Platelet Volume 8.9 fL (7.4-10.4); Platelet Count 215 10^3/uL (150-450); Red Blood Count 4.95 10^6 /uL (4.18-5.48); Red Cell Distribution Width 14 % (10-15); White Blood Count 6.9 10^3/uL (3.5-10.8)
--- NOTE | 2019-12-26 10:34 | ED ---
Dizziness - HPI Summary HPI Summary: Patient is a 64 y/o M presenting to [facility] with complaints of light-headedness, elevated HR and BP. Last evening, he states that he went for a walk, came back home, and started making dinner. He went upstairs and began to feel light- headed. He states that he has similar issues with light-headedness in the past related to hypoglycemia. Patient finished dinner but states that he felt "disoriented" afterwards. Around 2100 12/25/19, he states that he felt his heart racing. Patient states he measured his pulse to be in the 100s. He also states that he took his BP with his cuff at home and measured a BP of 200/100s. Patient reports that his BP gradually declined throughout the evening. He states that he was evaluated by his announcer last month, nothing of concern was noted at the time. Patient reports that he is not on medications for BP. He states that his BP is mostly within normal limits but he occasionally experiences spikes in BP. He notes Hx of asthma. 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 Home medications and allergies are reviewed. Home Medications Medication Instructions Recorded Confirmed Type Acetaminophen [Acetaminophen Extra 500 mg PO Q6H PRN 10/13/18 12/26/19 History Strength] Albuterol HFA INHALER* [Ventolin 2 puff INH Q6H PRN #1 mdi 10/13/18 12/26/19 Rx HFA Inhaler*] Loratadine [Claritin 10 MG CAP] 10 mg PO DAILY 08/29/19 12/26/19 History Ascorbic Acid TAB* [Vitamin C 3,000 mg PO DAILY 11/18/19 12/26/19 History TAB*] Flaxseed Oil [Linseed Oil] 5 ml PO DAILY 11/18/19 12/26/19 History Cholecalciferol TAB* [Vitamin D 1,000 unit PO DAILY 12/26/19 12/26/19 History TAB*] [place]-3 Fatty Acids (Nf) [Fish Oil 1,000 mg PO DAILY 12/26/19 12/26/19 History (NF)] Vitamin E 400 unit PO DAILY 12/26/19 12/26/19 History amLODIPine TAB* [Norvasc 5 mg TAB*] 5 mg PO DAILY 30 Days #30 tab 12/26/19 Rx - History Of Current Complaint Chief Complaint: EDHypertension Stated Complaint: GENERAL PER PT Time Seen by Provider: 12/26/19 10:02 Hx Obtained From: Patient Severity Currently: None Character: Lightheaded Aggravating Factor(s): Nothing Alleviating Factor(s): Nothing Associated Signs And Symptoms: Positive: Palpitations - fast HR, Other: - elevated BP - Allergies/Home Medications Allergies/Adverse Reactions: Allergies Allergy/AdvReac Type Severity Reaction Status Date / Time fenofibrate Allergy Hives Verified 12/26/19 09:59 environmental Allergy Mild Congestion Uncoded 12/26/19 09:59 Home Medications: Home Medications Acetaminophen [Acetaminophen Extra Strength] 500 mg PO Q6H PRN 10/13/18 [ History Confirmed 12/26/19] Albuterol HFA INHALER* [Ventolin HFA Inhaler*] 2 puff INH Q6H PRN #1 mdi [Rx Confirmed 12/26/19] Loratadine [Claritin 10 MG CAP] 10 mg PO DAILY 08/29/19 [History Confirmed 12/26] Ascorbic Acid TAB* [Vitamin C TAB*] 3,000 mg PO DAILY 11/18/19 [History Confirmed 12/26/19] Flaxseed Oil [Linseed Oil] 5 ml PO DAILY 11/18/19 [History Confirmed 12/26/19] Cholecalciferol TAB* [Vitamin D TAB*] 1,000 unit PO DAILY 12/26/19 [History Confirmed 12/26/19] [place]-3 Fatty Acids (Nf) [Fish Oil (NF)] 1,000 mg PO DAILY 12/26/19 [History Confirmed 12/26/19] Vitamin E 400 unit PO DAILY 12/26/19 [History Confirmed 12/26/19] amLODIPine TAB* [Norvasc 5 mg TAB*] 5 mg PO DAILY 30 Days #30 tab 12/26/19 [Rx] PMH/Surg Hx/FS Hx/Imm Hx Endocrine/Hematology History: Denies: Hx Diabetes, Hx Thyroid Disease Cardiovascular History: Reports: Hx Hypercholesterolemia, Other Cardiovascular Problems/Disorders - PVCs Denies: Hx Hypertension, Hx Peripheral Vascular Disease Respiratory History: Reports: Hx Asthma Denies: Hx Chronic Obstructive Pulmonary Disease (COPD) GI History: Denies: Hx Ulcer History: Denies: Hx Renal Disease Musculoskeletal History: Reports: Hx Arthritis, Other Musculoskeletal History - spinal stenosis Denies: Hx Osteoporosis Sensory History: Reports: Hx Contacts or Glasses Denies: Hx Cataracts, Hx Glaucoma, Hx Deafness, Hx Hearing Aid Opthamlomology History: Reports: Hx Contacts or Glasses Denies: Hx Cataracts, Hx Glaucoma Neurological History: Reports: Hx Migraine Denies: Hx Headaches, Hx Seizures, Hx Transient Ischemic Attacks (TIA) Psychiatric History: Denies: Hx Anxiety, Hx Depression Infectious Disease History: No Infectious Disease History: Reports: History 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 Denies: Hx Clostridium Difficile, Hx Hepatitis, Hx Human Immunodeficiency Virus (HIV), Hx of Known/Suspected MRSA, Hx Shingles, Hx Tuberculosis, Traveled Outside the [place] in Last 30 Days - Family History Known Family History: Positive: Hypertension, Other - HLD Family History: Dyslipidemia - Social History Alcohol Use: Occasionally Substance Use Type: Reports: None Smoking Status (MU): Never Smoked Tobacco Have You Smoked in the Last Year: No Review of Systems Cardiovascular: Other - positive - elevated BP and HR Neurological/Mental Status: Other - positive - light-headedness All Other Systems Reviewed And Are Negative: Yes Physical Exam - Summary Physical Exam Summary: Constitutional: Well-developed, Well-nourished, Alert. (-) Distressed Skin: Warm, Dry HENT: Normocephalic; Atraumatic Eyes: Conjunctiva normal Neck: Musculoskeletal ROM normal neck. (-) JVD, (-) Stridor, (-) Nuchal rigidity Cardio: Rhythm regular, rate normal, Heart sounds normal; Intact distal pulses; Radial pulses are 2+ and symmetric. (-) Murmur Pulmonary/Chest wall: Effort normal. (-) Respiratory distress, (-) Wheezes, (-) Rales Abd: Soft, (-) tenderness, (-) Distension, (-) Guarding, (-) Rebound Musculoskeletal: (-) Edema Lymph: (-) Cervical adenopathy Neuro: Alert, Oriented x3 Psych: Mildly-anxious appearing Triage Information Reviewed: Yes Vital Signs On Initial Exam: Initial Vitals Temp Pulse Resp BP Pulse Ox 98.6 F 115 18 188/132 97 12/26/19 09:43 12/26/19 09:43 12/26/19 09:43 12/26/19 09:43 12/26/19 09:43 Vital Signs Reviewed: Yes Procedures - Sedation Patient Received Moderate/Deep Sedation with Procedure: No Diagnostics - Vital Signs Vital Signs Temp Pulse Resp BP Pulse Ox 12/26/19 10:00 106 19 98 12/26/19 09:56 109 15 164/117 98 12/26/19 09:54 110 96 12/26/19 09:43 98.6 F 115 18 188/132 97 - Laboratory Lab Results: Lab Results 12/26/19 Range/Units 10:10 WBC 6.9 (3.5-10.8) 10^3/uL RBC 4.95 (4.18-5.48) 10^6 /uL Hgb 15.3 (14.0-18.0) g/dL Hct 44 (42-52) % MCV 89 (80-94) fL MCH 31 (27-31) pg MCHC 35 (31-36) g/dL RDW 14 (10-15) % Plt Count 215 (150-450) 10^3/uL MPV 8.9 (7.4-10.4) fL Neut % (Auto) 70.0 % Lymph % (Auto) 21.0 % [place] % (Auto) 7.3 % Eos % (Auto) 1.0 % Baso % (Auto) 0.7 % Absolute Neuts (auto) 4.8 (1.5-7.7) 10^3/ul Absolute Lymphs (auto) 1.4 (1.0-4.8) 10^3/ul Absolute Monos (auto) 0.5 (0-0.8) 10^3/ul Absolute Eos (auto) 0.1 (0-0.6) 10^3/ul Absolute Basos (auto) 0.0 (0-0.2) 10^3/ul Absolute Nucleated RBC 0.0 10^3/ul Nucleated RBC % 0.0 Result Diagrams: 12/26/19 10:10 12/26/19 10:10 Lab Statement: Any lab studies that have been ordered have been reviewed, and results considered in the medical decision making process. - EKG 1015 Cardiac Rate: NL - rate of 88 BPM EKG Rhythm: Sinus Rhythm EKG Comparison: No Significant Change - no significant changes compared to 10/17 EKG. Summary of EKG Findings: EKG showed NSR with rate of 88 BPM, no STEMI, no significant changes compared to 10/17/18 EKG. Dizzy Course/Dx - Course Course Of Treatment: 64 y/o male w hx anxiety p/w episode of lightheadedness ( resolved). - VS notable for HTN. Denies hx but per ROR has been hypertensive on prior visits. - EKG unchanged, trop negative, do not suspect cardiac cause. -Based on my eval today, no evidence of end organ damage from hypertension. - chemistry wnl,no XU noted, no chest pain/sob, no CROWDER, neuro exam non-focal. Recommendations for BP management: -The pt likely suffers from essential hypertension. -In the absence of a hypertensive emergency, which the pt does not have, there is no indication to aggressively treat elevated blood pressure, even when it approaches the systolic ~180 range. 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 -acutely, the pt may still have an elevated pressure, but over time the medication will take effect. - will send home on amlodipine - Diagnoses Provider Diagnoses: Light headedness, HTN (hypertension) Discharge ED - Sign-Out/Discharge Documenting (check all that apply): Patient Departure - discharge - Discharge Plan Condition: Stable Disposition: HOME Prescriptions: amLODIPine TAB* [Norvasc 5 mg TAB*] 5 mg PO DAILY 30 Days #30 tab Patient Education Materials: Hypertension (ED), Lightheadedness (ED) Referrals: Sarmad Ndiaye MD [Primary Care Provider] - 2 Days Additional Instructions: You were seen in the emergency department for lightheadedness. Your vitals showed high blood pressure, please take amlodipine 5 mg once a day. Please follow up with you primary care doctor for blood pressure check. Please follow up with your primary care doctor in next 2-3 days and return to emergency department for chest pain, passing out, trouble breathing, worsening or concerning symptoms. It was a pleasure taking care of you today. - Billing Disposition and Condition Condition: STABLE Disposition: Home - Attestation Statements Document Initiated by Scribe: Yes Documenting Scribe: DELISA JUAREZ Provider For Whom Scribe is Documenting (Include Credential): FELIX TRUJILLO MD Scribe Attestation: I, DELISA JUAREZ, scribed for FELIX TRUJILLO MD on 12/26/19 at 1158. Scribe Documentation Reviewed: Yes Provider Attestation: The documentation as recorded by the scribe, DELISA JUAREZ accurately reflects the service I personally performed and the decisions made by me, FELIX TRUJILLO MD Status of Scribe Document: Viewed
[2019-12-26 10:43] LABS: Albumin 4.3 g/dL (3.2-5.2); Albumin/Globulin Ratio 1.4 (1-3); BUN/Creatinine Ratio 15.7 (8-20); Calcium 9.5 mg/dL (8.6-10.3); EGFR African American 103.8 (>60); EGFR Non-African American 85.8 (>60); Globulin 3.1 g/dL (2-4); Potassium 3.8 mmol/L (3.5-5.0); Total Bilirubin 0.4 mg/dL (0.2-1.0); Total Protein 7.4 g/dL (6.4-8.9)
[2019-12-26 11:10] LABS: TSH (Thyroid Stimulating Horm) 3.15 mcIU/mL (0.34-5.60)
[2019-12-26 11:47] VITALS: BP 137/84
== END 2019-12-26 11:47 | disposition home or self-care (01) ==
LOC: ED 09:42
DX: I10 Essential (primary) hypertension (principal); E78.00 Pure hypercholesterolemia, unspecified; I49.3 Ventricular premature depolarization; J45.909 Unspecified asthma, uncomplicated; Z79.899 Other long term (current) drug therapy; Z88.8 Allergy status to other drugs, medicaments and biological substances
CPT/HCPCS: 36415; 80053; 84443; 84484; 85025; 93005; 99283